=== PATIENT | male | born 1950 | race Caucasian/White ===

== ENCOUNTER 2018-04-09 15:54 | Inpatient (IN) | payer OTHER ==
[~2018-04-09] VITALS: Ht 162.6 cm; Wt 75.0 kg
[2018-04-09] MEDS ORDERED: ASPIRIN 325 MG TAB PO STA (19:22)
[2018-04-09] MEDS ORDERED: NITROGLYCERIN (SL) 0.4 MG TAB SL PRN ×2 (19:30→21:30)
[2018-04-09] MEDS ORDERED: ALBUTEROL 0.5% (NEB) 2.5 MG/0.5 ML AMP NEB STA (20:28)
[2018-04-09] MEDS ORDERED: IPRATROPIUM (NEB) 0.5 MG/2.5 ML AMP NEB STA (20:28)
[2018-04-09] MEDS ORDERED: FUROSEMIDE 40 MG INJ IV ONE (20:30)
--- NOTE | 2018-04-09 20:35 | ERD ---
ER Documentation Chief Complaint Chief Complaint Chest pain/sob x last night HPI This is a 67-year-old male with a past medical history of [id number] diabetes mellitus and hypertension. The patient presents to the emergency department complaining of chest pain and shortness of breath. He states that it began at 9 PM yesterday, roughly 23 hours prior to arrival. The patient states that the shortness of breath is worse with exertion. He is normally able to walk several blocks but states he can no longer walk a few steps without becoming short of breath. He denies any swelling of his lower extremities. He states the pressure-like sensation is 8 out of 10 in intensity. He denies any recent travel or prolonged immobilization. He has had associated symptoms of nausea but no diaphoresis. He stated he is felt and decreased gaseous sensation with mild abdominal distention but denies any abdominal pain. ROS All systems reviewed and are negative except as per history of present illness. PMhx/Soc History of Surgery: Yes (LEFT EYE CATARACTS) Anesthesia Reaction: No Hx Respiratory Disorders: No Hx Cardiac Disorders: Yes (HTN, HLD) Hx Psychiatric Problems: No Hx Miscellaneous Medical Probl: Yes (DM) Hx Alcohol Use: No Hx Substance Use: No Hx Tobacco Use: No Smoking Status: Never smoker Physical Exam Vitals Vital Signs Date Temp Pulse Resp B/P (MAP) Pulse Ox O2 O2 Flow FiO2 Time Delivery Rate 04/09/18 66 24 151/72 99 Room Air 20:17 (98) 04/09/18 98.3 75 18 207/96 96 16:02 (133) Physical Exam Constitutional:Well-developed. Well-nourished. HEENT:Normocephalic. Atraumatic.Pupils were equal round reactive to light. Moist mucous membranes.No tonsillar exudates. Neck: No nuchal rigidity. No lymphadenopathy. No posterior cervical spine tenderness or step-offs. Respiratory: Not using accessory muscles of respiration.Lungs were clear to auscultation bilaterally. Bilateral rhonchi. No rales. No wheezing. Cardiovascular: Regular rate regular rhythm.No murmurs. No rubs were apprecia beny.S1, S2 normal. Distal pulses are palpable 2+ bilaterally. GI: Abdomen was soft. Nontender. Non Distended. No pulsatile abdominal masses or bruits. No rebound. No guarding. Bowel sounds were present and normal. Muscle skeletal: Full range of motion of both the upper and lower extremities bilaterally.Normal muscle tone.No assymetrical calf tenderness or swelling. Skin: No petechia, no purpura. No lesions on the palms or the soles of the feet. No maculopapular rash. NEURO: Patient was alert, awake, orientated x3.No facial droop. Gait observed and normal with no ataxia.Speech had regular rate and rhythm. No focal neurological deficits. Result Diagram: 04/09/18192904/09/181929 Results 24 hrs Laboratory Tests Test 04/09/18 19:30 White Blood Count 10.6 10^3/ul Red Blood Count 4.12 10^6/ul Hemoglobin 11.9 g/dl Hematocrit 36.1 % Mean Corpuscular Volume 87.6 fl Mean Corpuscular Hemoglobin 28.9 pg Mean Corpuscular Hemoglobin Concent 33.0 g/dl Red Cell Distribution Width 12.9 % Platelet Count 342 10^3/UL Mean Platelet Volume 9.5 fl Immature Granulocytes % 0.500 % Neutrophils % 69.3 % Lymphocytes % 20.3 % Monocytes % 7.5 % Eosinophils % 1.6 % Basophils % 0.8 % Nucleated Red Blood Cells % 0.0 /100WBC Immature Granulocytes # 0.050 10^3/ul Neutrophils # 7.4 10^3/ul Lymphocytes # 2.2 10^3/ul Monocytes # 0.8 10^3/ul Eosinophils # 0.2 10^3/ul Basophils # 0.1 10^3/ul Nucleated Red Blood Cells # 0.0 10^3/ul Prothrombin Time 14.3 Sec Prothrombin Time Ratio 1.1 INR International Normalized Ratio 1.10 Activated Partial Thromboplast Time 30.7 Sec Sodium Level 138 mmol/L Potassium Level 4.9 mmol/L Chloride Level 100 mmol/L Carbon Dioxide Level 30 mmol/L Anion Gap 8 Blood Urea Nitrogen 26 mg/dl Creatinine 1.26 mg/dl Est Glomerular Filtrat Rate mL/min 57 mL/min Glucose Level 139 mg/dl Calcium Level 9.1 mg/dl Total Bilirubin 0.2 mg/dl Direct Bilirubin 0.00 mg/dl Indirect Bilirubin 0.2 mg/dl Aspartate Amino Transf (AST/SGOT) 33 IU/L Alanine Aminotransferase (ALT/SGPT) 45 IU/L Alkaline Phosphatase 99 IU/L Creatine Kinase 163 IU/L Creatine Kinase Index 0.9 Creatinine Kinase MB (Mass) 1.48 ng/ml Troponin I 0.897 ng/ml B-Type Natriuretic Peptide 07295 PG/ML Total Protein 6.9 g/dl Albumin 3.8 g/dl Globulin 3.10 g/dl Albumin/Globulin Ratio 1.22 Current Medications Medications Dose Sig/Bakari Start Time Status Last (Trade) Ordered Route PRN Stop Time Admin Dose Reason Admin Aspirin 325 mg ONCE STAT 04/09/18 DC 04/09/18 (Aspirin) PO 19:22 04/09/18 19:38 19:23 1 tab Q5M UP TO 3 04/09/18 04/09/18 Nitroglycerin DOSES PRN 19:30 19:38 SL .CHEST (Nitroglyceri PAIN n (Sl Tab) 0.4 Mg) Procedures/MDM The patient presented to the emergency department with chest pain. My clinical evaluation and workup was to distinguish minor causes of chest pain from acute life threatening conditions such as myocardial infarction, pulmonary embolism, aortic dissection, esophageal rupture, cardiac tamponade. The patient was placed on a secured entrance monitor and continuous pulse oximetry. IV access established by nursing staff. The patient had a chest radiograph reviewed by myself the radiologist which showed cardiomegaly but there is no pulmonary vascular congestion. The patient's BNP was significantly elevated and he has no risk factors for pulmonary embolism. I felt the patient's shortness of breath was a result of new onset congestive heart failure. The patient's troponin was also elevated. He will be treated for non-STEMI. He received aspirin and nitroglycerin with improvement of his chest pain. He stated it was now 2 out of 10 in intensity. He was given IV Lasix as well as a nebulizer treatment to improve his shortness of breath. 12 Lead EKG tracing ordered and reviewed by myself showed: Normal sinus rhythm of 75 bpm and no arrhythmia. MO interval normal. QRS duration normal. No ST segment elevation. T wave inversion in the lateral leads V4, V5 and V6 No ST segment depression. No changes consistent with acute ischemia. The patient will be admitted in serious condition to the telemetry serious under the care of the hospitalist. Critical Care: Time: 35 minutes Treatments/Evaluations: Close monitoring and treatment of unstable vital signs, cardiorespiratory, and neurologic status, while maintaining tight balance of fluid, respiratory, and cardiac interventions. Time does not include performing any of the above billable procedures. Departure Diagnosis: Primary Impression: Non-STEMI (non-ST elevated myocardial infarction) Additional Impression: CHF (congestive heart failure) Heart failure type: unspecified Heart failure chronicity: acute Qualified Codes: I50.9 - Heart failure, unspecified Condition: Serious LOI DAVALOS MD Apr 09, 2018 20:35
[2018-04-09] MEDS ORDERED: ACETAMINOPHEN 325 MG TAB PO PRN ×2 (21:00→21:30)
[2018-04-09] MEDS ORDERED: ONDANSETRON 4 MG INJ IV PRN (21:00)
[2018-04-09] MEDS ORDERED: NACL 0.9% 3 ML SYG IV SCH (21:30)
[2018-04-09] MEDS ORDERED: ONDANSETRON 4 MG TAB PO PRN (21:30)
[2018-04-09] MEDS ORDERED: BISACODYL (EC) 5 MG TAB PO PRN (21:30)
[2018-04-09] MEDS ORDERED: DOCUSATE SODIUM 100 MG CAP PO PRN (21:30)
[2018-04-09 22:00] VITALS: BP 143/78; PULSE 18; RESP 18
[2018-04-09 22:02] VITALS: PULSE 67
--- NOTE | 2018-04-09 22:05 | NUR ---
RECEIVED PT FROM ER. PT IS A/OX4. ABLE TO AMBULATE WITH NO ASSIST. DENIES ANY CP. WILL CONTINUE TO MONITOR
[2018-04-09] MEDS ORDERED: ATOR40TA68 PO (22:44)
[2018-04-09] MEDS ORDERED: LOSA25TA12 PO (22:44)
[2018-04-09] MEDS ORDERED: HYDR12.58 PO (22:44)
[2018-04-09] MEDS ORDERED: METF500T24 PO (22:44)
[2018-04-09 22:46] VITALS: Ht 162.6 cm; Wt 75.0 kg
[2018-04-10] VITALS (9 sets, daily range): BP systolic 133–171; BP diastolic 60–77; PULSE 54–77; RESP 16–18
--- NOTE | 2018-04-10 06:22 | NUR ---
SECOND TROPONIN READING IS EXACTLY THE SAME THE FIRST DRAW. MADE DR GRESHAM AWARE. NO NEW ORDERS MADE. PT DENIES ANY CP THROUGHOUT THE SHIFT. WILL ENDORSE TO AM SHIFT FOR CONTINUITY OF CARE
--- NOTE | 2018-04-10 08:05 | HP ---
Date/Time of Note Date/Time of Note DATE: 04/10/18 TIME: 08:04 Assessment/Plan VTE Prophylaxis SCD applied (from Nsg): Yes Pharmacological prophylaxis: NA/contraindicated Pharm contraindication: low risk/ambulating Lines/Catheters IV Catheter Type (from Nrsg): Saline Lock Assessment/Plan Hospital Course This is a 59-year-old male being admitted to the telemetry floor for: #1 new onset CHF exacerbation: Systolic versus diastolic, will obtain an echocardiogram. BNP is elevated at 11,000. Patient does have signs of mild volume overload. However he does not appear to be in any acute distress. He did receive a dose of Lasix 40 IV in the ED. At the current time we will put him on Lasix 20 mg twice daily daily. Fluid restriction. Hold ARB at the current time given patient's AK I. And will hold off on beta-jose enrique at the current time given his bradycardia. Will consult cardiology. Dr. García #2 elevated troponin: Type I versus type II. Patient denies any chest pain at the current time. EKG appears nonischemic. Will trend cardiac enzymes x3. Will obtain an echocardiogram. Consult cardiology. #3 diabetes mellitus: We will check a hemoglobin A1c, hold home oral medic ations, consider insulin sliding scale #4 hypertension: We will hold ARB at the current time given patient's TIM. Will also hold hydrochlorothiazide, reinitiate when clinically indicated #5 TIM: Unknown baseline creatinine. On presentation creatinine was 1.26. We will continue to trend. Will hold ARB and thiazide at the current time. Monitor renal function. Consider nephrology consultation, renal panel #6 borderline obesity: We will check hemoglobin A 1C, lipid panel, TSH #7 hyperlipidemia: Check lipid panel, resume statin #8 DVT GI prophylaxis: SCDs, no GI prophylaxis indicated Further treatment strategy will be implemented as per the clinical course. Result Diagram: 04/10/1843 04/10/1843 Results 24hrs Laboratory Tests Test 04/09/18 19:30 04/10/18 00:29 04/10/18 05:43 White Blood Count 10.6 8.9 Red Blood Count 4.12 L 3.78 L Hemoglobin 11.9 L 10.9 L Hematocrit 36.1 L 32.8 L Mean Corpuscular Volume 87.6 86.8 Mean Corpuscular Hemoglobin 28.9 L 28.8 L Mean Corpuscular Hemoglobin Concent 33.0 33.2 Red Cell Distribution Width 12.9 13.1 Platelet Count 342 337 Mean Platelet Volume 9.5 10.0 Immature Granulocytes % 0.500 H 0.300 Neutrophils % 69.3 62.1 Lymphocytes % 20.3 24.6 Monocytes % 7.5 8.2 Eosinophils % 1.6 3.9 Basophils % 0.8 0.9 Nucleated Red Blood Cells % 0.0 0.0 Immature Granulocytes # 0.050 H 0.030 Neutrophils # 7.4 5.5 Lymphocytes # 2.2 2.2 Monocytes # 0.8 0.7 Eosinophils # 0.2 0.4 Basophils # 0.1 0.1 Nucleated Red Blood Cells # 0.0 0.0 Prothrombin Time 14.3 Prothrombin Time Ratio 1.1 INR International Normalized Ratio 1.10 Activated Partial Thromboplast Time 30.7 Sodium Level 138 139 Potassium Level 4.9 4.1 Chloride Level 100 104 Carbon Dioxide Level 30 34 H Anion Gap 8 1 L Blood Urea Nitrogen 26 H 23 H Creatinine 1.26 H 1.29 H Est Glomerular Filtrat Rate mL/min 57 L 55 L Glucose Level 139 131 Calcium Level 9.1 8.7 Total Bilirubin 0.2 0.3 Direct Bilirubin 0.00 0.00 Indirect Bilirubin 0.2 0.3 Aspartate Amino Transf (AST/SGOT) 33 24 Alanine Aminotransferase (ALT/SGPT) 45 40 Alkaline Phosphatase 99 71 Creatine Kinase 163 131 98 Creatine Kinase Index 0.9 0.8 1.1 Creatinine Kinase MB (Mass) 1.48 1.10 1.04 Troponin I 0.897 *H 0.897 *H 0.850 *H B-Type Natriuretic Peptide 78697 H Total Protein 6.9 6.1 Albumin 3.8 3.2 L Globulin 3.10 2.90 Albumin/Globulin Ratio 1.22 1.10 Magnesium Level 1.9 Triglycerides Level 88 Cholesterol Level 89 L LDL Cholesterol, Calculated 46 HDL Cholesterol 25 L Cholesterol/HDL Ratio 3.5 HPI/ROS Admit Date/Time Admit Date/Time Apr 09, 2018 at 20:39 Hx of Present Illness Chief complaint: Chest pain This is a 67-year-old male with a past medical history of mwh-[id number] diabetes mellitus and hypertension. The patient presents to the emergency department complaining of chest pain and shortness of breath. Son was present with him at the bedside. He reported that he started experiencing chest pain and shortness of breath on Wednesday night. The patient states that the shortness of breath is worse with exertion. He is normally able to walk several blocks but states he can no longer walk a few steps without becoming short of breath. He denies any swelling of his lower extremities. He states the pressure-like sensation is 8 out of 10 in intensity. He denies any recent travel or prolonged immobilization. He has had associated symptoms of nausea but no diaphoresis. He stated he is felt and decreased gaseous sensation with mild abdominal distention but denies any abdominal pain. He at the current time denies any chest pain. Allergies: NKDA Medications: See Apr Const: As per HPI Eyes : No pain discharge or redness or change in visual acuity ENT: No pain, sore throat, congestion, congestion, dysphagia or discharge Respiratory: As per HPI Cardiovascular: As per HPI GI : no change in appetite, abdominal pain, nausea, vomiting, diarrhea, constipation, or change in the color his stool Genitourinary: No dysuria, hematuria, flank pain , discharge or CVA tenderness Musculoskeletal: No joint pain, back pain, neck pain, restricted range of motion in neck or joints Skin: No rash, bruising or hives Neuro: No headache, dizziness, syncope, seizure, focal weakness Endocrine: No polyuria, polydipsia, temperature intolerance Psych: No hallucination, depression, anxiety or suicidal ideation PMH/Family/Social Past Medical History Diabetes mellitus, hypertension, hyperlipidemia Medications Current Medications IV Flush (NS 3 ml) 3 ml PER PROTOCOL IV ; Start 04/09/18 at 21:30 Ondansetron HCl (Zofran Tab) 4 mg Q6H PRN PO NAUSEA/VOMITING; Start 04/09/18 at 21:30 Nitroglycerin (Nitroglycerin (Sl Tab) 0.4 Mg) 1 tab Q5M PRN SL .CHEST PAIN; Start 04/09/18 at 21:30 Acetaminophen (Tylenol Tab) 650 mg Q6H PRN PO .PAIN 1-3 OR TEMP; Start 04/09/18 at 21:30 Docusate Sodium (Colace) 100 mg Q12H PRN PO .CONSTIPATION; Start 04/09/18 at 21:30 Bisacodyl (Dulcolax) 5 mg DAILY PRN PO .CONSTIPATION; Start 04/09/18 at 21:30 Influenza Virus Vaccine Quadrival (Fluzone) 0.5 ml ONCE ONCE IM* ; Start 04/11/18 at 10:00; Stop 04/11/18 at 10:01 Coded Allergies: No Known Allergy (Unverified , 04/09/18) Past Surgical History Past Surgical Hx: no surgical history Family History Significant Family History: no pertinent family hx Social History Alcohol Use: none Smoking Status: Never smoker Drug Use: none Exam/Review of Systems Vital Signs Vitals Vital Signs Date Temp Pulse Resp B/P (MAP) Pulse Ox O2 O2 Flow FiO2 Time Delivery Rate 04/10/18 98.2 58 18 148/67 96 07:39 (94) 04/09/18 Room Air 22:00 04/09/18 21 20:59 Intake and Output 04/09/18 04/09/18 04/10/18 1515:00 23:00 07:00 IntakeIntake Total 400 ml BalanceBalance 400 ml Exam Exam General: Patient is a pleasant male currently lying in bed in no acute distress. HEENT: Atraumatic, normocephalic. The pupils are equal, round and reactive. Extraocular motor are intact Neck: Supple with full range of motion. No rigidity or meningismus Chest: Nontender Lungs: Bilateral crackles/rales at the lung bases, nonlabored breathing Heart: Normal S1-S2, Regular rhythm and rate, elevated JVD Abdomen: Soft , mild distention noted, normal bowel sounds Extremities: Normal to inspection, no edema no cyanosis Neurologic: Normal mental status, speech normal, cranial nerves II through XII are intact, motor and sensory are intact, no focal weakness Additional Comments PROCEDURE: XR Chest. CLINICAL INDICATION: Chest pain TECHNIQUE: Single frontal view of the chest was obtained COMPARISON: None FINDINGS: The heart is enlarged. The thoracic aorta is calcified. There are mild bibasilar atelectatic changes. The lungs are otherwise clear. There is no pleural effusion or pneumothorax. RPTAT: AA IMPRESSION: Mild cardiomegaly. Calcified aorta consistent with atherosclerotic disease. Mild bibasilar atelectatic changes. .Jos Wilde MD, Date Time Electronically viewed and signed by .Jos Wilde MD, on 04/09/2018 19:50 .S/ CC: LOI DAVALOS MD [phone] EKG: Normal sinus rhythm of 75 bpm and no arrhythmia. WV interval normal. QRS duration normal. No ST segment elevation. T wave inversion in the lateral leads V4, V5 and V6 No ST segment depression. No changes consistent with acute ischemia. OSBALDO GRESHAM Apr 10, 2018 08:04
[2018-04-10] MEDS: FUROSEMIDE 20 MG INJ IV SCH ×2 (09:39→17:28)
--- NOTE | 2018-04-10 12:45 | PN ---
Date/Time of Note Date/Time of Note DATE: 04/10/18 TIME: 12:41 Assessment/Plan VTE Prophylaxis Risk score (from Ns)>0 risk: 2 SCD applied (from Ns): Yes Pharmacological prophylaxis: heparin Lines/Catheters IV [facility] Saline Lock Assessment/Plan Hospital Course 68 yo male with DMII, hypertension with SOB and volume overload, suggestive of new onset heart failure - Continue diuresis to euvolemia - TTE pending - I have added Coreg for BP management - Troponin elevated, but I suspect type II as no chest symptosm or ST changes to suggest acute infarction - CKD II likely given stable creatinine and DMII. Monitor creatinine with diuretics. VALERIA inhibitor if stable Result Diagram: 04/10/18 0543 04/10/18 1013 Results 24hrs Laboratory Tests Test 04/09/18 19:30 04/10/18 00:29 04/10/18 05:43 04/10/18 05:56 White Blood Count 10.6 8.9 Red Blood Count 4.12 L 3.78 L Hemoglobin 11.9 L 10.9 L Hematocrit 36.1 L 32.8 L Mean Corpuscular 87.6 86.8 Volume Mean Corpuscular 28.9 L 28.8 L Hemoglobin Mean Corpuscular 33.0 33.2 Hemoglobin Concent Red Cell 12.9 13.1 Distribution Width Platelet Count 342 337 Mean Platelet Volume 9.5 10.0 Immature 0.500 H 0.300 Granulocytes % Neutrophils % 69.3 62.1 Lymphocytes % 20.3 24.6 Monocytes % 7.5 8.2 Eosinophils % 1.6 3.9 Basophils % 0.8 0.9 Nucleated Red Blood 0.0 0.0 Cells % Immature 0.050 H 0.030 Granulocytes # Neutrophils # 7.4 5.5 Lymphocytes # 2.2 2.2 Monocytes # 0.8 0.7 Eosinophils # 0.2 0.4 Basophils # 0.1 0.1 Nucleated Red Blood 0.0 0.0 Cells # Prothrombin Time 14.3 Prothrombin Time 1.1 Ratio INR International 1.10 Normalized Ratio Activated 30.7 Partial Thromboplast Time Sodium Level 138 139 Potassium Level 4.9 4.1 Chloride Level 100 104 Carbon Dioxide Level 30 34 H Anion Gap 8 1 L Blood Urea Nitrogen 26 H 23 H Creatinine 1.26 H 1.29 H Est Glomerular 57 L 55 L Filtrat Rate mL/min Glucose Level 139 131 Calcium Level 9.1 8.7 Total Bilirubin 0.2 0.3 Direct Bilirubin 0.00 0.00 Indirect Bilirubin 0.2 0.3 Aspartate Amino 33 24 Transf (AST/SGOT) Alanine 45 40 Aminotransferase (AL T/SGPT) Alkaline Phosphatase 99 71 Creatine Kinase 163 131 98 Creatine Kinase 0.9 0.8 1.1 Index Creatinine Kinase MB 1.48 1.10 1.04 (Mass) Troponin I 0.897 *H 0.897 *H 0.850 *H B-Type Natriuretic 48306 H Peptide Total Protein 6.9 6.1 Albumin 3.8 3.2 L Globulin 3.10 2.90 Albumin/Globulin 1.22 1.10 Ratio Magnesium Level 1.9 Triglycerides Level 88 Cholesterol Level 89 L LDL Cholesterol, 46 Calculated HDL Cholesterol 25 L Cholesterol/HDL 3.5 Ratio Hemoglobin A1c 7.4 H Test 04/10/18 10:13 Sodium Level 139 Potassium Level 4.1 Chloride Level 101 Carbon Dioxide Level 31 Anion Gap 7 Blood Urea Nitrogen 23 H Creatinine 1.30 H Glucose Level 231 #H Calcium Level 9.0 Phosphorus Level 4.3 Creatine Kinase 90 Creatine Kinase 0.9 Index Creatinine Kinase MB 0.84 (Mass) Troponin I 0.707 *H Albumin 3.4 Subjective 24 Hr Interval Summary Free Text/Dictation Patient comfortable Receiving diuretics Complains of SOB and abodminal distension Exam/Review of Systems Exam Vitals Vital Signs Date Temp Pulse Resp B/P (MAP) Pulse Ox O2 O2 Flow FiO2 Time Delivery Rate 04/10/18 55 12:35 04/10/18 98.7 18 171/77 97 12:10 (108) 04/09/18 Room Air 22:00 04/09/18 21 20:59 Intake and Output 04/09/18 04/09/18 04/10/18 1515:00 23:00 07:00 IntakeIntake Total 400 ml BalanceBalance 400 ml Exam + JVD Breathing comfortably RRR + abdominal distension no peripheral edema Results Results 24hrs Laboratory Tests Test 04/09/18 19:30 04/10/18 00:29 04/10/18 05:43 04/10/18 05:56 White Blood Count 10.6 8.9 Red Blood Count 4.12 L 3.78 L Hemoglobin 11.9 L 10.9 L Hematocrit 36.1 L 32.8 L Mean Corpuscular 87.6 86.8 Volume Mean Corpuscular 28.9 L 28.8 L Hemoglobin Mean Corpuscular 33.0 33.2 Hemoglobin Concent Red Cell 12.9 13.1 Distribution Width Platelet Count 342 337 Mean Platelet Volume 9.5 10.0 Immature 0.500 H 0.300 Granulocytes % Neutrophils % 69.3 62.1 Lymphocytes % 20.3 24.6 Monocytes % 7.5 8.2 Eosinophils % 1.6 3.9 Basophils % 0.8 0.9 Nucleated Red Blood 0.0 0.0 Cells % Immature 0.050 H 0.030 Granulocytes # Neutrophils # 7.4 5.5 Lymphocytes # 2.2 2.2 Monocytes # 0.8 0.7 Eosinophils # 0.2 0.4 Basophils # 0.1 0.1 Nucleated Red Blood 0.0 0.0 Cells # Prothrombin Time 14.3 Prothrombin Time 1.1 Ratio INR International 1.10 Normalized Ratio Activated 30.7 Partial Thromboplast Time Sodium Level 138 139 Potassium Level 4.9 4.1 Chloride Level 100 104 Carbon Dioxide Level 30 34 H Anion Gap 8 1 L Blood Urea Nitrogen 26 H 23 H Creatinine 1.26 H 1.29 H Est Glomerular 57 L 55 L Filtrat Rate mL/min Glucose Level 139 131 Calcium Level 9.1 8.7 Total Bilirubin 0.2 0.3 Direct Bilirubin 0.00 0.00 Indirect Bilirubin 0.2 0.3 Aspartate Amino 33 24 Transf (AST/SGOT) Alanine 45 40 Aminotransferase (AL T/SGPT) Alkaline Phosphatase 99 71 Creatine Kinase 163 131 98 Creatine Kinase 0.9 0.8 1.1 Index Creatinine Kinase MB 1.48 1.10 1.04 (Mass) Troponin I 0.897 *H 0.897 *H 0.850 *H B-Type Natriuretic 52578 H Peptide Total Protein 6.9 6.1 Albumin 3.8 3.2 L Globulin 3.10 2.90 Albumin/Globulin 1.22 1.10 Ratio Magnesium Level 1.9 Triglycerides Level 88 Cholesterol Level 89 L LDL Cholesterol, 46 Calculated HDL Cholesterol 25 L Cholesterol/HDL 3.5 Ratio Hemoglobin A1c 7.4 H Test 04/10/18 10:13 Sodium Level 139 Potassium Level 4.1 Chloride Level 101 Carbon Dioxide Level 31 Anion Gap 7 Blood Urea Nitrogen 23 H Creatinine 1.30 H Glucose Level 231 #H Calcium Level 9.0 Phosphorus Level 4.3 Creatine Kinase 90 Creatine Kinase 0.9 Index Creatinine Kinase MB 0.84 (Mass) Troponin I 0.707 *H Albumin 3.4 Medications Medication Current Medications IV Flush (NS 3 ml) 3 ml PER PROTOCOL IV ; Start 04/09/18 at 21:30 Ondansetron HCl (Zofran Tab) 4 mg Q6H PRN PO NAUSEA/VOMITING; Start 04/09/18 at 21:30 Nitroglycerin (Nitroglycerin (Sl Tab) 0.4 Mg) 1 tab Q5M PRN SL .CHEST PAIN; Start 04/09/18 at 21:30 Acetaminophen (Tylenol Tab) 650 mg Q6H PRN PO .PAIN 1-3 OR TEMP; Start 04/09/18 at 21:30 Docusate Sodium (Colace) 100 mg Q12H PRN PO .CONSTIPATION; Start 04/09/18 at 21:30 Bisacodyl (Dulcolax) 5 mg DAILY PRN PO .CONSTIPATION; Start 04/09/18 at 21:30 Influenza Virus Vaccine Quadrival (Fluzone) 0.5 ml ONCE ONCE IM* ; Start 04/11/18 at 10:00; Stop 04/11/18 at 10:01 Furosemide (Lasix) 20 mg BID DIURETICS IV Last administered on 04/10/18at 09:39; Admin Dose 20 MG; Start 04/10/18 at 09:30; Stop 04/12/18 at 09:29 Carvedilol (Coreg) 3.125 mg BID PO ; Start 04/10/18 at 21:00; Status UNAMRIT JACOBS MD Apr 10, 2018 12:45
[2018-04-10] MEDS ORDERED: GLUCOSE GEL 15 GRAM TUBE BUCCAL PRN (13:00)
[2018-04-10] MEDS ORDERED: GLUCAGON 1 MG INJ IM PRN (13:00)
[2018-04-10] MEDS ORDERED: DEXTROSE 50% 50 ML SYRINGE IV PRN ×2 (13:00)
[2018-04-10] MEDS ORDERED: GLUCOSE GEL 15 GRAM TUBE PO PRN ×2 (13:00)
[2018-04-10] MEDS ORDERED: hydrALAzine 20 MG INJ IV PRN (14:00)
--- NOTE | 2018-04-10 14:04 | RADRPT ---
Echocardiogram Report Patient Name: ASTON CERNAPatient ID: [id number] : 1950 (67y 11m)Study Date: 04/10/2018 8:34:31 AM Gender: Pilocession #: [id number] Tech: Diane Whipple [facility] Location: 519- Ref.Physician: ADEBAYO GRESHAM Height(Cm): BSA: Weight(Kg): Quality: AdequateOrder Physician: Adebayo Gresham Account #: Procedures: Echocardiographic Report: Transthoracic echocardiogram with complete 2D, M-Mode, and doppler examination. Indications: Congestive Heart Failure , Elevate Troponin. Measurements: 2D/M Mode Doppler Measurement Value Normal Range Measurement Value Normal Range LVIDd 2D 4.5 [ 4.2 - 5.8 ] cm AV Peak Ramon 1.4 [ 100.0 - 170.0 ] cm/sec LVIDs 2D 3.7 [ 2.5 - 4.0 ] cm AV Peak PG 8.0 [ 2.0 - 9.0 ] mmHg LVPWd 2D 1.0 [ 0.6 - 1.0 ] cm LVOT Peak Ramon 0.8 [ 70.0 - 110.0 ] cm/sec IVSd 2D 0.9 [ 0.6 - 1.0 ] cm LVOT Peak PG 2.0 [ 2.0 - 6.0 ] mmHg AoR Diam 2D 2.7 [ 2.6 - 3.4 ] cm MV E Peak Ramon 1.0 [ 60.0 - 130.0 ] cm/sec EDV 2D 92.4 [ 62.0 - 150.0 ] ml MV A Peak Ramon 0.4 [ 100.0 - 120.0 ] cm/sec ESV 2D 59.6 [ 21.0 - 61.0 ] ml MV E/A 2.7 [ 0.8 - 1.5 ] ratio EF 2D 35.5 [ 52.0 - 72.0 ] percent MV Decel Time 225 [ 104 - 258 ] msec LA Dimen 2D 3.4 [ 3.0 - 4.0 ] cm Med E` Ramon 0.1 cm/sec MV E/A 2.7 [ 0.8 - 1.5 ] ratio TR Peak Ramon 3.1 [ 100.0 - 280.0 ] cm/sec TR Peak PG 39.0 mmHg RVSP 39.0 [ 10.0 - 36.0 ] mmHg RA Pressure 3.0 mmHg Findings: Left Ventricle: Normal left ventricular cavity size. Normal left ventricular wall thickness. Moderate global left ventricular systolic dysfunction. Ejection fraction is visually estimated at 35-40 %. Tissue Doppler/Mitral Doppler indices are within normal limits. Right Ventricle: Normal right ventricular size. Normal right ventricular systolic function. Left Atrium: The left atrium is normal in size. Right Atrium: The right atrium is normal in size. Mitral Valve: Normal appearance of the mitral valve. Mild mitral valve regurgitation. Aortic Valve: Normal appearance of the aortic valve. No aortic regurgitation. Tricuspid Valve: Normal appearance of the tricuspid valve. There is trace tricuspid regurgitation. Pulmonic Valve: Normal pulmonic valve appearance. No evidence of pulmonic regurgitation. Pericardium: Normal pericardium with no significant pericardial effusion. Aorta: Normal aortic root. IVC: Normal size and normal respiratory collapse consistent with normal right atrial pressure. Conclusions: Normal left ventricular cavity size. Normal left ventricular wall thickness. Moderate global left ventricular systolic dysfunction. Ejection fraction is visually estimated at 35-40 %. Tissue Doppler/Mitral Doppler indices are within normal limits. Normal appearance of the mitral valve. Mild mitral valve regurgitation. Normal appearance of the tricuspid valve. There is trace tricuspid regurgitation. Electronically Signed By: Tod García 2018-04-10 14:03:41 PST
[2018-04-10] MEDS: ASPIRIN 81 MG TAB PO SCH (14:20)
--- NOTE | 2018-04-10 14:28 | CONS ---
DATE OF ADMISSION: 04/09/2018 DATE OF CONSULTATION: 04/10/2018 TYPE OF CONSULTATION: Cardiology. REASON FOR CONSULTATION: Non-ST myocardial infarction, elevated BNP, assess for congestive heart lee hammer. REQUESTING PHYSICIAN: Adebayo Gresham MD, from the hospitalist service. HISTORY OF PRESENT ILLNESS: Mr. Guido Wall is a 67-year-old male with a history of diabetes melli tus, hypertension, dyslipidemia, prior cardiac pathology evaluated by tech writer 3 to 4 months prio r, but did not follow instructions who now presents with acute onset shortness of breath and substern al chest pain described as a pressure-like sensation in the evening prior to admit to the hospital. Pain occurred while at rest. The patient presented here to the emergency department in [facility] where upon arrival temperature was 98.3, blood pressure was markedly with 207/96, pul se 75, respiratory rate 18, satting 92%. The patient's labs were notable for sodium 138, potassium 4 .9, creatinine 1.26, BUN 26, troponin of 0.897, BNP of 11,000, INR of 1.1. The patient underwent a c hest x-ray revealing mild cardiomegaly, mild bibasilar atelectatic changes. The patient's electrocar diogram revealed normal sinus rhythm, rate of 75 with inferior and lateral T-wave inversions. The naeem dowling was subsequently admitted to the floor and since admit to the floor, has had no change in tropo nins status minimally positive. PAST MEDICAL HISTORY: As above in HPI. MEDICATIONS CURRENTLY IN HOSPITAL: 1. Carvedilol 3.125 mg p.o. b.i.d. 2. Lantus. 3. Lasix 20 mg IV b.i.d. 4. Sublingual nitroglycerin. 5. Dulcolax. 6. Colace. ALLERGIES: NO KNOWN DRUG ALLERGIES. SOCIAL HISTORY: No current tobacco, EtOH or illicit drug use. FAMILY HISTORY: No history of sudden cardiac or early CAD. REVIEW OF SYSTEMS: As above in HPI. CONSTITUTIONAL: No fevers, chills. PULMONARY: No current signs of respiratory compromise. GASTROINTESTINAL: No vomiting. GENITOURINARY: Renal failure. PSYCHIATRIC: No documented psych history. NEUROLOGIC: No documented history of CVA. ENDOCRINE: Diabetes mellitus. PHYSICAL EXAMINATION: VITAL SIGNS: Temperature 98.7, most recently pulse 55, blood pressure 171/77, respiration 18, sattin g 93%. GENERAL: The patient is alert, awake, in no acute distress. NECK: JVP is approximately 9 cm of water. CHEST: Fair air movement throughout. HEART: Bradycardic, regular rhythm, normal S1, S2, I/ systolic murmur, nondisplaced PMI. ABDOMEN: Positive bowel sounds, soft. EXTREMITIES: No significant pitting edema, 1+ pulses bilateral posterior tibial. LABORATORY DATA: Most recently today white blood cell count of 8.9, hemoglobin 10.9, platelet count of 337. Sodium of 139, potassium 4.1, creatinine 1.3, BUN 23. Troponin 0.707, mildly down. LDL 46, HDL 25. IMAGING STUDIES: As above in HPI. No further imaging studies for my review at this time. ELECTROCARDIOGRAM: As above in HPI. No further electrocardiograms for my review at this time. IMPRESSION: 1. Positive troponin, concerning for non-ST elevation myocardial infarction, no significant uptrend in the setting of renal failure. 2. Chest pain with positive troponins, likely consistent with [id number] myocardial infarction . 3. Shortness of breath, assess for congestive heart failure. 4. Increased BNP, assess for congestive heart failure. 5. Abnormal electrocardiogram with inferior and lateral T-wave inversions, assess for acute coronary syndrome. 6. Hypertension, uncontrolled. 7. Dyslipidemia. 8. Bradycardia with heart rates to the 50s. RECOMMENDATIONS: 1. At this time, we would maintain the patient on telemetry monitoring to follow rhythm and rate con trol closely. 2. Continue to trend the patient's cardiac enzymes, assess for any significant ongoing cardiac damag e. 3. Check a TSH to be ensure subclinical hypothyroidism is not contributing to any bouts of bradyarrh ythmias. 4. Continue the patient's Lasix diuresis, following strict I's and O's, creatinine to grade diuresis closely. 5. Continue the patient's current carvedilol as tolerated and we will additionally give the patient hydralazine at this time to improve overall systolic blood pressure and possibly afterload reduction. 6. We will follow up the patient's 2D echo to further assess ejection fraction, wall motion or rule out any major valve abnormalities. 7. We would place the patient on aspirin in the setting of positive troponins and we will initiate t he patient on Lovenox subcutaneously daily. 8. Further recommendations pertaining to the care of the patient will made as the patient progresses through his inpatient hospital clinical course and the patient likely is requiring left heart cathet erization versus a cardiac stress test in setting of ongoing renal failure. Thank you for allowing me to take part in the care of this patient. I will continue to follow him ve ry closely with you with further recommendations to be made as the patient [facility]. Dictated By: CHRISTI HAMILTON/NTS Conf#: [id number] DID#: [id number] CC: ADEBAYO GRESHAM MD; ALBA BORGES MD;*EndCC*
[2018-04-10] MEDS: ENOXAPARIN 80 MG/0.8 ML SYG SC SCH (15:07)
[2018-04-10] MEDS: INSULIN ASPART [NOVOLOG] 3 ML PEN SC SCH ×3 (17:25→21:00)
--- NOTE | 2018-04-10 17:53 | NUR ---
EOSS Patient is alert and oriented to person, place, and time. No shortness of breath noted. No complaint of pain. patient is ambulatory with steady gait. US kidney done during shift. All needs attended to and met. Troponins trending down. Kept comfortable. Call light within reach.
[2018-04-10] MEDS: ATORVASTATIN 20 MG TAB PO SCH (21:24)
[2018-04-10] MEDS: INSULIN GLARGINE [LANTus] (100 UNITS/ML) SYG SC SCH (21:28)
[2018-04-11] VITALS (9 sets, daily range): BP systolic 127–160; BP diastolic 61–72; PULSE 58–82; RESP 18–20
[2018-04-11] MEDS: FUROSEMIDE 20 MG INJ IV SCH ×2 (05:43→17:38)
--- NOTE | 2018-04-11 06:41 | NUR ---
NO SIGNIFICANT CHANGES. NO COMPLAINS OF CP THROUGHOUT THE SHIFT. ALL NEEDS ATTENDED. WILL ENDORSE TO AM SHIFT FOR CONTINUITY OF CARE
[2018-04-11] MEDS: INSULIN ASPART [NOVOLOG] 3 ML PEN SC SCH ×7 (07:55→20:28)
[2018-04-11] MEDS: ASPIRIN 81 MG TAB PO SCH (08:13)
--- NOTE | 2018-04-11 12:46 | CONS ---
Assessment/Plan Assessment/Plan Hospital Course (Demo Recall) IMPRESSION: 1. Positive troponin, concerning for non-ST elevation myocardial infarction, no significant uptrend in the setting of renal failure.-downtrending 2. Chest pain with positive troponins, likely consistent with slk-[id number] myocardial infarction. 3. Shortness of breath, assess for congestive heart failure. 4. Increased BNP, assess for congestive heart failure. 5. Abnormal electrocardiogram with inferior and lateral T-wave inversions, assess for acute coronary syndrome. 6. Hypertension, uncontrolled. 7. Dyslipidemia. 8. Bradycardia with heart rates to the 50s. 9. Cardiomyopathy with decreased LVEF by echo this admit REcc -Tele -serial ecg;'s -continue coreg/hydralazine -Continue lasix diuresis - lexiscan to assess significance opf posituve troponin in the setting of renal failure Consultation Date/Type/Reason Admit Date/Time Apr 09, 2018 at 20:39 Initial Consult Date 04/10/18 Type of Consult Cardiology Reason for Consultation CHF Requesting Provider: ANTHONY GARCÍA Date/Time of Note DATE: 04/11/18 TIME: 12:41 Exam/Review of Systems Vital Signs Vitals Vital Signs Date Temp Pulse Resp B/P (MAP) Pulse Ox O2 O2 Flow FiO2 Time Delivery Rate 04/11/18 98.4 61 20 127/61 96 11:33 (83) 04/11/18 Room Air 04:00 04/09/18 21 20:59 Intake and Output 04/10/18 04/10/18 04/11/18 1515:00 23:00 07:00 IntakeIntake Total 1200 ml 750 ml BalanceBalance 1200 ml 750 ml Exam Exam Review of Systems: CONSTITUTIONAL: No fevers, chills. PULMONARY: No sob CARDIOVASCULAR: No chest pain/palpitations GASTROINTESTINAL: No nausea/vomiting. GENITOURINARY: No hematuria/dysuria. MUSCULOSKELETAL: No myagias/arthalgias. PSYCHIATRIC: The patient denies depression. NEUROLOGIC: No weakness Constitutional: alert Psych: no complaints Head: normocephalic ENMT: mucosa pink and moist Neck: supple, jvd (9 cm water) Respiratory: diminished breath sounds Cardiovascular: regular rate and rhythm Gastrointestinal: soft, non-tender Musculoskeletal: muscle tone (normal) Extremities: edema (none) Labs Result Diagram: 04/11/18 0543 04/11/18 0543 Results 24hrs Laboratory Tests Test 04/10/18 15:54 04/10/18 16:24 04/10/18 17:25 04/10/18 21:22 Creatine Kinase 81 Creatine Kinase 1.0 Index Creatinine Kinase MB 0.83 (Mass) Troponin I 0.628 *H Urine Color YELLOW Urine Clarity CLEAR Urine pH 6.0 Urine Specific 1.015 [place] Urine Ketones NEGATIVE Urine Nitrite NEGATIVE Urine Bilirubin NEGATIVE Urine Urobilinogen 1+ H Urine Leukocyte NEGATIVE Esterase Urine Microscopic 1 RBC Urine Microscopic 0 WBC Urine Hemoglobin NEGATIVE Urine Glucose 1+ H Urine Total Protein 2+ H Bedside Glucose 112 170 Test 04/10/18 22:01 04/11/18 05:43 04/11/18 07:58 04/11/18 11:59 Creatine Kinase 69 Creatine Kinase 1.0 Index Creatinine Kinase MB 0.70 (Mass) Troponin I 0.601 *H White Blood Count 9.7 Red Blood Count 3.93 L Hemoglobin 11.5 L Hematocrit 34.5 L Mean Corpuscular 87.8 Volume Mean Corpuscular 29.3 Hemoglobin Mean Corpuscular 33.3 Hemoglobin Concent Red Cell 12.8 Distribution Width Platelet Count 351 Mean Platelet Volume 10.0 Immature 0.300 Granulocytes % Neutrophils % 62.2 Lymphocytes % 22.3 Monocytes % 8.7 Eosinophils % 5.7 Basophils % 0.8 Nucleated Red Blood 0.0 Cells % Immature 0.030 Granulocytes # Neutrophils # 6.0 Lymphocytes # 2.2 Monocytes # 0.8 Eosinophils # 0.6 H Basophils # 0.1 Nucleated Red Blood 0.0 Cells # Sodium Level 140 Potassium Level 4.8 Chloride Level 103 Carbon Dioxide Level 32 H Anion Gap 5 Blood Urea Nitrogen 30 H Creatinine 1.41 H Est Glomerular 50 L Filtrat Rate mL/min Glucose Level 125 Calcium Level 9.1 Magnesium Level 2.0 Total Bilirubin 0.1 L Direct Bilirubin 0.00 Indirect Bilirubin 0.1 Aspartate Amino 17 Transf (AST/SGOT) Alanine 32 Aminotransferase (AL T/SGPT) Alkaline Phosphatase 80 Total Protein 6.2 Albumin 3.3 Globulin 2.90 Albumin/Globulin 1.13 Ratio Bedside Glucose 122 118 Medications Medications Current Medications IV Flush (NS 3 ml) 3 ml PER PROTOCOL IV ; Start 04/09/18 at 21:30 Ondansetron HCl (Zofran Tab) 4 mg Q6H PRN PO NAUSEA/VOMITING; Start 04/09/18 at 21:30 Nitroglycerin (Nitroglycerin (Sl Tab) 0.4 Mg) 1 tab Q5M PRN SL .CHEST PAIN; Start 04/09/18 at 21:30 Acetaminophen (Tylenol Tab) 650 mg Q6H PRN PO .PAIN 1-3 OR TEMP; Start 04/09/18 at 21:30 Docusate Sodium (Colace) 100 mg Q12H PRN PO .CONSTIPATION Last administered on 04/11/18at 08:48; Admin Dose 100 MG; Start 04/09/18 at 21:30 Bisacodyl (Dulcolax) 5 mg DAILY PRN PO .CONSTIPATION; Start 04/09/18 at 21:30 Furosemide (Lasix) 20 mg BID DIURETICS IV Last administered on 04/11/18at 05:43; Admin Dose 20 MG; Start 04/10/18 at 09:30; Stop 04/12/18 at 09:29 Carvedilol (Coreg) 3.125 mg BID PO Last administered on 04/11/18at 08:13; Admin Dose 3.125 MG; Start 04/10/18 at 21:00 Insulin Glargine (Lantus) 11 units DAILY@2000 SC Last administered on 04/10/18at 21:28; Admin Dose 11 UNITS; Start 04/10/18 at 20:00 Insulin Aspart (Novolog Insulin Pen) 4 unit WITH MEALS SC Last administered on 04/11/18at 12:02; Admin Dose 4 UNIT; Start 04/10/18 at 17:55 Insulin Aspart (Novolog Insulin Pen) NOVOLOG *MILD* ALGORITHM WITH MEALS BEDTIME SC ; Start 04/10/18 at 17:55 Miscellaneous Information 1 ea NOTE XX ; Start 04/10/18 at 13:00 Glucose (Glutose) 15 gm Q15M PRN PO DECREASED GLUCOSE; Start 04/10/18 at 13:00 Glucose (Glutose) 22.5 gm Q15M PRN PO DECREASED GLUCOSE; Start 04/10/18 at 13:00 Dextrose (D50w Syringe) 25 ml Q15M PRN IV DECREASED GLUCOSE; Start 04/10/18 at 13:00 Dextrose (D50w Syringe) 50 ml Q15M PRN IV DECREASED GLUCOSE; Start 04/10/18 at 13:00 Glucagon (Glucagen) 1 mg Q15M PRN IM DECREASED GLUCOSE; Start 04/10/18 at 13:00 Glucose (Glutose) 15 gm Q15M PRN BUCCAL DECREASED GLUCOSE; Start 04/10/18 at 13:00 Hydralazine HCl (Apresoline) 50 mg Q8 PO Last administered on 04/11/18at 05:43; Admin Dose 50 MG; Start 04/10/18 at 14:00 Aspirin (Aspirin) 81 mg DAILY PO Last administered on 04/11/18at 08:13; Admin Dose 81 MG; Start 04/10/18 at 14:00 Enoxaparin Sodium (Lovenox) 75 mg Q24H SC Last administered on 04/10/18at 15:07; Admin Dose 75 MG; Start 04/10/18 at 14:00 Hydralazine HCl (Apresoline) 10 mg Q4H PRN IV SBP>170; Start 04/10/18 at 14:00 Atorvastatin Calcium (Lipitor) 20 mg HS PO Last administered on 04/10/18at 21:24; Admin Dose 20 MG; Start 04/10/18 at 21:00 CHRISTI HART Apr 11, 2018 12:46
[2018-04-11] MEDS: ENOXAPARIN 80 MG/0.8 ML SYG SC SCH (14:25)
--- NOTE | 2018-04-11 15:38 | PN ---
Date/Time of Note Date/Time of Note DATE: 04/11/18 TIME: 15:31 Assessment/Plan VTE Prophylaxis Risk score (from Nsg)>0 risk: 2 Pharmacological prophylaxis: LMWH Lines/Catheters IV Catheter Type (from Nrsg): Saline Lock Assessment/Plan Hospital Course 68 yo male with DMII, hypertension with SOB and volume overload, suggestive of new onset heart failure 1. Acute systolic CHF-newly diagnosed -Echo shows an EF of 35-40%, patient has no known history of CHF or MS -Cardiology consultation appreciated, follow-up with recommendations -Continue diuresis to euvolemia -Continue Coreg 2. Non-STEMI -Likely type II as patient has no complaints of chest pain -Continue therapeutic Lovenox, aspirin and statin -Stress test per cardiology 3. Diabetes -A1c is 7.4 -Continue scheduled insulin and sliding scale 4. Hypertension -Continue Coreg and hydralazine 5. CKD likely secondary to hypertension and diabetes -Nephrology consultation obtained Prophylaxis: Lovenox Result Diagram: 04/11/18 0543 04/11/1843 Results 24hrs Laboratory Tests Test 04/10/18 15:54 04/10/18 16:24 04/10/18 17:25 04/10/18 21:22 Creatine Kinase 81 Creatine Kinase 1.0 Index Creatinine Kinase MB 0.83 (Mass) Troponin I 0.628 *H Urine Color YELLOW Urine Clarity CLEAR Urine pH 6.0 Urine Specific 1.015 [place] Urine Ketones NEGATIVE Urine Nitrite NEGATIVE Urine Bilirubin NEGATIVE Urine Urobilinogen 1+ H Urine Leukocyte NEGATIVE Esterase Urine Microscopic 1 RBC Urine Microscopic 0 WBC Urine Hemoglobin NEGATIVE Urine Glucose 1+ H Urine Total Protein 2+ H Bedside Glucose 112 170 Test 04/10/18 22:01 04/11/18 05:43 04/11/18 07:58 04/11/18 11:59 Creatine Kinase 69 Creatine Kinase 1.0 Index Creatinine Kinase MB 0.70 (Mass) Troponin I 0.601 *H White Blood Count 9.7 Red Blood Count 3.93 L Hemoglobin 11.5 L Hematocrit 34.5 L Mean Corpuscular 87.8 Volume Mean Corpuscular 29.3 Hemoglobin Mean Corpuscular 33.3 Hemoglobin Concent Red Cell 12.8 Distribution Width Platelet Count 351 Mean Platelet Volume 10.0 Immature 0.300 Granulocytes % Neutrophils % 62.2 Lymphocytes % 22.3 Monocytes % 8.7 Eosinophils % 5.7 Basophils % 0.8 Nucleated Red Blood 0.0 Cells % Immature 0.030 Granulocytes # Neutrophils # 6.0 Lymphocytes # 2.2 Monocytes # 0.8 Eosinophils # 0.6 H Basophils # 0.1 Nucleated Red Blood 0.0 Cells # Sodium Level 140 Potassium Level 4.8 Chloride Level 103 Carbon Dioxide Level 32 H Anion Gap 5 Blood Urea Nitrogen 30 H Creatinine 1.41 H Est Glomerular 50 L Filtrat Rate mL/min Glucose Level 125 Calcium Level 9.1 Magnesium Level 2.0 Total Bilirubin 0.1 L Direct Bilirubin 0.00 Indirect Bilirubin 0.1 Aspartate Amino 17 Transf (AST/SGOT) Alanine 32 Aminotransferase (AL T/SGPT) Alkaline Phosphatase 80 Total Protein 6.2 Albumin 3.3 Globulin 2.90 Albumin/Globulin 1.13 Ratio Bedside Glucose 122 118 Subjective 24 Hr Interval Summary Constitutional: no complaints Exam/Review of Systems Exam Vitals Vital Signs Date Temp Pulse Resp B/P (MAP) Pulse Ox O2 O2 Flow FiO2 Time Delivery Rate 04/11/18 98.5 66 20 137/64 96 15:15 (88) 04/11/18 Room Air 04:00 04/09/18 21 20:59 Intake and Output 04/10/18 04/10/18 04/11/18 1515:00 23:00 07:00 IntakeIntake Total 1200 ml 750 ml BalanceBalance 1200 ml 750 ml Constitutional: alert, oriented Respiratory: clear to auscultation Cardiovascular: regular rate and rhythm Gastrointestinal: soft; No distended Musculoskeletal: nl extremities to inspection Results Results 24hrs Laboratory Tests Test 04/10/18 15:54 04/10/18 16:24 04/10/18 17:25 04/10/18 21:22 Creatine Kinase 81 Creatine Kinase 1.0 Index Creatinine Kinase MB 0.83 (Mass) Troponin I 0.628 *H Urine Color YELLOW Urine Clarity CLEAR Urine pH 6.0 Urine Specific 1.015 [place] Urine Ketones NEGATIVE Urine Nitrite NEGATIVE Urine Bilirubin NEGATIVE Urine Urobilinogen 1+ H Urine Leukocyte NEGATIVE Esterase Urine Microscopic 1 RBC Urine Microscopic 0 WBC Urine Hemoglobin NEGATIVE Urine Glucose 1+ H Urine Total Protein 2+ H Bedside Glucose 112 170 Test 04/10/18 22:01 04/11/18 05:43 04/11/18 07:58 04/11/18 11:59 Creatine Kinase 69 Creatine Kinase 1.0 Index Creatinine Kinase MB 0.70 (Mass) Troponin I 0.601 *H White Blood Count 9.7 Red Blood Count 3.93 L Hemoglobin 11.5 L Hematocrit 34.5 L Mean Corpuscular 87.8 Volume Mean Corpuscular 29.3 Hemoglobin Mean Corpuscular 33.3 Hemoglobin Concent Red Cell 12.8 Distribution Width Platelet Count 351 Mean Platelet Volume 10.0 Immature 0.300 Granulocytes % Neutrophils % 62.2 Lymphocytes % 22.3 Monocytes % 8.7 Eosinophils % 5.7 Basophils % 0.8 Nucleated Red Blood 0.0 Cells % Immature 0.030 Granulocytes # Neutrophils # 6.0 Lymphocytes # 2.2 Monocytes # 0.8 Eosinophils # 0.6 H Basophils # 0.1 Nucleated Red Blood 0.0 Cells # Sodium Level 140 Potassium Level 4.8 Chloride Level 103 Carbon Dioxide Level 32 H Anion Gap 5 Blood Urea Nitrogen 30 H Creatinine 1.41 H Est Glomerular 50 L Filtrat Rate mL/min Glucose Level 125 Calcium Level 9.1 Magnesium Level 2.0 Total Bilirubin 0.1 L Direct Bilirubin 0.00 Indirect Bilirubin 0.1 Aspartate Amino 17 Transf (AST/SGOT) Alanine 32 Aminotransferase (AL T/SGPT) Alkaline Phosphatase 80 Total Protein 6.2 Albumin 3.3 Globulin 2.90 Albumin/Globulin 1.13 Ratio Bedside Glucose 122 118 Medications Medication Current Medications IV Flush (NS 3 ml) 3 ml PER PROTOCOL IV ; Start 04/09/18 at 21:30 Ondansetron HCl (Zofran Tab) 4 mg Q6H PRN PO NAUSEA/VOMITING; Start 04/09/18 at 21:30 Nitroglycerin (Nitroglycerin (Sl Tab) 0.4 Mg) 1 tab Q5M PRN SL .CHEST PAIN; Start 04/09/18 at 21:30 Acetaminophen (Tylenol Tab) 650 mg Q6H PRN PO .PAIN 1-3 OR TEMP; Start 04/09/18 at 21:30 Docusate Sodium (Colace) 100 mg Q12H PRN PO .CONSTIPATION Last administered on 04/11/18at 08:48; Admin Dose 100 MG; Start 04/09/18 at 21:30 Bisacodyl (Dulcolax) 5 mg DAILY PRN PO .CONSTIPATION; Start 04/09/18 at 21:30 Furosemide (Lasix) 20 mg BID DIURETICS IV Last administered on 04/11/18at 05:43 ; Admin Dose 20 MG; Start 04/10/18 at 09:30; Stop 04/12/18 at 09:29 Carvedilol (Coreg) 3.125 mg BID PO Last administered on 04/11/18at 08:13; Admin Dose 3.125 MG; Start 04/10/18 at 21:00 Insulin Glargine (Lantus) 11 units DAILY@2000 SC Last administered on 04/10/18at 21:28; Admin Dose 11 UNITS; Start 04/10/18 at 20:00 Insulin Aspart (Novolog Insulin Pen) 4 unit WITH MEALS SC Last administered on 04/11/18at 12:02; Admin Dose 4 UNIT; Start 04/10/18 at 17:55 Insulin Aspart (Novolog Insulin Pen) NOVOLOG *MILD* ALGORITHM WITH MEALS BEDTIME SC ; Start 04/10/18 at 17:55 Miscellaneous Information 1 ea NOTE XX ; Start 04/10/18 at 13:00 Glucose (Glutose) 15 gm Q15M PRN PO DECREASED GLUCOSE; Start 04/10/18 at 13:00 Glucose (Glutose) 22.5 gm Q15M PRN PO DECREASED GLUCOSE; Start 04/10/18 at 13:00 Dextrose (D50w Syringe) 25 ml Q15M PRN IV DECREASED GLUCOSE; Start 04/10/18 at 13:00 Dextrose (D50w Syringe) 50 ml Q15M PRN IV DECREASED GLUCOSE; Start 04/10/18 at 13:00 Glucagon (Glucagen) 1 mg Q15M PRN IM DECREASED GLUCOSE; Start 04/10/18 at 13:00 Glucose (Glutose) 15 gm Q15M PRN BUCCAL DECREASED GLUCOSE; Start 04/10/18 at 13:00 Hydralazine HCl (Apresoline) 50 mg Q8 PO Last administered on 04/11/18at 14:19; Admin Dose 50 MG; Start 04/10/18 at 14:00 Aspirin (Aspirin) 81 mg DAILY PO Last administered on 04/11/18at 08:13; Admin Dose 81 MG; Start 04/10/18 at 14:00 Enoxaparin Sodium (Lovenox) 75 mg Q24H SC Last administered on 04/11/18at 14:25; Admin Dose 75 MG; Start 04/10/18 at 14:00 Hydralazine HCl (Apresoline) 10 mg Q4H PRN IV SBP>170; Start 04/10/18 at 14:00 Atorvastatin Calcium (Lipitor) 20 mg HS PO Last administered on 04/10/18at 21:24; Admin Dose 20 MG; Start 04/10/18 at 21:00 TAWNYA ROY Apr 11, 2018 15:38
--- NOTE | 2018-04-11 17:52 | QN ---
Documentation Comment seen and ecmained KIAN GUY MD Apr 11, 2018 17:52
--- NOTE | 2018-04-11 18:24 | NUR ---
EOSS: Patient stable on bed, not in distress. Denies any pain/discomfort noted, V/S stable. All needs attended well. Continued monitoring per plan of care.
--- NOTE | 2018-04-11 18:48 | CONS ---
DATE OF ADMISSION: 04/09/2018 DATE OF CONSULTATION: 04/09/2018 REASON FOR ADMISSION: CKD. REASON FOR CONSULTATION: CKD. HISTORY OF PRESENTING ILLNESS: This is a 67-year-old male with a past medical history of diabetes for the last 5 years, hypertension, and hyperlipidemia who presented to the emergency department on 04/09/2018, secondary to complaining of chest pain and shortness of breath. The patient said that he had been experiencing chest pain and shortness of breath since Wednesday night. It was worse with exertion. Denied any swelling of his lower extremities. He was also noticing some abdominal distention. On admission, vital signs had showed body temperature 98.2, pulse 58, respirations 18, and blood pressure 148/67. Chest x-ray showed mild cardiomegaly. EKG showed T-wave inversion in leads V4, V5, and V6. On admission, sodium was 139, potassium 4.1, chloride 104, bicarbonate 34, BUN of 23, and creatinine 1.29. The patient was started on IV Lasix 20 b.i.d., and renal was consulted. Creatinine today has trended up to 1.41. The patient denies any history of renal disease in the past. MEDICATIONS: The patient said that occasionally on and off, he was takin. Motrin. 2. Advil. The patient was taking medications: 3. Losartan 50. 4. Atorvastatin. 5. Hydrochlorothiazide 12.5. 6. Metformin 500 b.i.d. The patient was also found to have an echo with EF of 35% to 40%. PAST MEDICAL HISTORY: 1. Insulin-dependent diabetes. 2. Hypertension. 3. Hyperlipidemia. 4. Left eye surgery. PAST SURGICAL HISTORY: The patient had left eye surgery. SOCIAL HISTORY: Denies any history of smoking, alcohol, or any drug use. 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 FAMILY HISTORY: No history of cardiac disease or renal disease. REVIEW OF SYSTEMS: The patient complains of chest pain and shortness of breath on exertion. Denies any lower extremity edema. The patient has complained of abdominal distention. Denies any nausea, vomiting, or diarrhea. Denies any headache or any blurry vision. Denies any hematemesis, any melena, or blood per rectum. The patient had occasional NSAID use. Denies any nocturia or hematuria. Denies any history of kidney stones. PHYSICAL EXAMINATION: VITAL SIGNS: Currently, blood pressure 137/64, pulse is 66, and respirations 20. GENERAL: the patient is awake, alert, oriented, and does not appear to be in any acute distress. HEENT: Pupils equal, round, and reactive to light. NECK: JVD is elevated. LUNGS: Decreased breath sounds bilaterally. ABDOMEN: Soft, nontender. Has distention. Has umbilical hernia. EXTREMITIES: Trace edema. DIAGNOSTIC DATA: White count 9.7, hemoglobin 11.5, and platelet count is 351. Sodium is 140, potassium is 4.8, creatinine 1.41, and bicarb is 32. Troponin is 0.897 and is currently 0.601. UA shows 2+ protein. No RBCs. ASSESSMENT: This is a 67-year-old male who presented with: 1. acute on chronic systolic congestive heart failure with EF of 30 to 35% presenting with chest pain and shortness of breath. 2. Likely Chronic kidney disease III A with given small size of kidneys with mild component of acute. The patient likely has underlying chronic kidney disease due to diabetic nephropathy. He has a 2+ proteinuria. This could all be exacerbated due to cardiorenal etiology since the patient has a likely non-ST elevation myocardial infraction. The patient was also using hydrochlorothiazide, losartan, and metformin at home 3. Non-ST elevated myocardial infraction.with elevated troponins, chest pain, EKG changes 4. NSAID use. 5. Hypertension. 6. Dyslipidemia. 7. Cardiomyopathy. 8. Proteinuria likely secondary to diabetes. PLAN: 1. At this period of time, the patient is admitted to telemetry. 2. We will check strict I's and O's, fluid restriction, and daily weights. 3. Agree with Lasix 20 IV b.i.d. for now. 4. Renal ultrasound is negative for any hydro and has small kidneys. Probably, the patient has component of chronic kidney disease. 5. I agree with holding metformin, losartan, and hydrochlorothiazide currently. 6. Renally dosing in all meds. 7. Avoid nephrotoxic. 8. Would like to obtain a previous baseline labs on the patient. 9. Should the patient need an angiogram, the patient is a high risk for contrast nephropathy. We will continue to follow the patient with you. 10. We will also send the patient for proteinuria workup. Rest of the treatment depend on the patient's hospitalization course. Dictated By: KIAN MUNSON/ZAKIA Conf#: [id number] DID#: [id number] CC: OSBALDO GRESHAM MD; TAWNYA ROY MD; KIAN GUY;*EndCC* MTDD
[2018-04-11] MEDS: ATORVASTATIN 20 MG TAB PO SCH (20:22)
[2018-04-11] MEDS: INSULIN GLARGINE [LANTus] (100 UNITS/ML) SYG SC SCH (20:28)
[2018-04-12] VITALS (11 sets, daily range): BP systolic 107–151; BP diastolic 63–69; PULSE 59–69; RESP 18–20
[2018-04-12] MEDS: GUAIFENESIN/DM 5ML CUP PO PRN ×2 (01:35→21:39)
[2018-04-12] MEDS: FUROSEMIDE 20 MG INJ IV SCH (06:04)
--- NOTE | 2018-04-12 07:17 | NUR ---
KEPT NPO POST MIDNIGHT. NO SIGNIFICANT CHANGES. VS REMAINS STABLE. DENIES ANY CHEST PAIN. WILL ENDORSE TO AM SHIFT FOR CONTINUITY OF CARE
[2018-04-12] MEDS: INSULIN ASPART [NOVOLOG] 3 ML PEN SC SCH ×7 (07:35→20:11)
[2018-04-12] MEDS: ASPIRIN 81 MG TAB PO SCH (08:07)
[2018-04-12] MEDS ORDERED: REGADENOSON 0.4 MG/5 ML SYG ONE (09:16)
--- NOTE | 2018-04-12 10:34 | CONS ---
Consult Date/Type/Reason Admit Date/Time Apr 09, 2018 at 20:39 Initial Consult Date Requesting Provider: ANTHONY GARCÍA Date/Time of Note DATE: 04/12/18 TIME: 10:31 Subjective NO acute events - stress test complete -will follow results. ROS: No fever, no chills, no nausea, no vomiting, no diarrhea/constipation No recent weight changes No chest pain, no PND, no orthopnea -mild SOB No dizziness, blurred vision No thirst, no heat or cold intolerance Objective Vitals Vital Signs Date Temp Pulse Resp B/P (MAP) Pulse Ox O2 O2 Flow FiO2 Time Delivery Rate 04/12/18 66 08:00 04/12/18 98.4 20 135/63 94 07:29 (87) 04/11/18 Room Air 04:00 04/09/18 21 20:59 Intake and Output 04/11/18 04/11/18 04/12/18 1515:00 23:00 07:00 IntakeIntake Total 750 ml 520 ml OutputOutput Total 850 ml BalanceBalance 750 ml -330 ml Exam General: WN/WD/NAD, AOx 3 HEENT: Unicetric/atraumatic/EOMI (follows commands) NECK: JVD elevated, no thyromegaly Lymph: no lymphadenopathy HEART: regular with no S3, II/ systolic murmur at apex, PMI L LUNGS: Coarse sounds ABD: soft, NT, ND, +BS : Intact Neuro: non focal SKIN: chronic changes EXT: trace edema Results/Medications Result Diagram: 04/12/18 0645 04/12/18 0645 Results 24 hrs Laboratory Tests Test 04/11/18 11:59 04/11/18 17:22 04/11/18 18:05 04/11/18 20:21 Bedside Glucose 118 96 141 Urine Eosinophils % 0.0 Urine Random 108.54 Creatinine Urine Random Sodium 105 H Urine 2.71 Protein/Creatinine Ratio Urine Total Protein 295.0 H Test 04/12/18 06:45 04/12/18 07:35 White Blood Count 10.6 Red Blood Count 4.09 L Hemoglobin 11.8 L Hematocrit 35.6 L Mean Corpuscular 87.0 Volume Mean Corpuscular 28.9 L Hemoglobin Mean Corpuscular 33.1 Hemoglobin Concent Red Cell 13.1 Distribution Width Platelet Count 368 Mean Platelet Volume 10.0 Immature 0.600 H Granulocytes % Neutrophils % 65.0 Lymphocytes % 21.8 Monocytes % 9.0 Eosinophils % 2.8 Basophils % 0.8 Nucleated Red Blood 0.0 Cells % Immature 0.060 H Granulocytes # Neutrophils # 6.9 Lymphocytes # 2.3 Monocytes # 1.0 H Eosinophils # 0.3 Basophils # 0.1 Nucleated Red Blood 0.0 Cells # Sodium Level 138 Potassium Level 3.8 Chloride Level 103 Carbon Dioxide Level 31 Anion Gap 4 L Blood Urea Nitrogen 33 H Creatinine 1.49 H Est Glomerular 47 L Filtrat Rate mL/min Glucose Level 99 Calcium Level 8.9 Total Bilirubin 0.3 Direct Bilirubin 0.00 Indirect Bilirubin 0.3 Aspartate Amino 15 Transf (AST/SGOT) Alanine 26 Aminotransferase (AL T/SGPT) Alkaline Phosphatase 72 Total Protein 6.5 Albumin 3.4 Globulin 3.10 Albumin/Globulin 1.09 Ratio Bedside Glucose 110 Home Meds Reported Medications Hydrochlorothiazide* (Hydrochlorothiazide*) Unknown Strength Tablet, 12.5 MG PO DAILY, #30 TAB 04/09/18 Atorvastatin* (Atorvastatin*) Unknown Strength Tablet, PO QHS, #30 TAB 04/09/18 Losartan Potassium* (Losartan Potassium*) Unknown Strength Tablet, 50 MG PO DAILY, TAB 04/09/18 Metformin Hcl* (Metformin Hcl*) 500 Mg Tablet, 500 MG PO BID, #30 TAB 04/09/18 Medications Current Medications IV Flush (NS 3 ml) 3 ml PER PROTOCOL IV ; Start 04/09/18 at 21:30 Ondansetron HCl (Zofran Tab) 4 mg Q6H PRN PO NAUSEA/VOMITING; Start 04/09/18 at 21:30 Nitroglycerin (Nitroglycerin (Sl Tab) 0.4 Mg) 1 tab Q5M PRN SL .CHEST PAIN; Start 04/09/18 at 21:30 Acetaminophen (Tylenol Tab) 650 mg Q6H PRN PO .PAIN 1-3 OR TEMP; Start 04/09/18 at 21:30 Docusate Sodium (Colace) 100 mg Q12H PRN PO .CONSTIPATION Last administered on 04/11/18at 08:48; Admin Dose 100 MG; Start 04/09/18 at 21:30 Bisacodyl (Dulcolax) 5 mg DAILY PRN PO .CONSTIPATION; Start 04/09/18 at 21:30 Carvedilol (Coreg) 3.125 mg BID PO Last administered on 04/12/18at 08:07; Admin Dose 3.125 MG; Start 04/10/18 at 21:00 Insulin Glargine (Lantus) 11 units DAILY@2000 SC Last administered on 04/11/18at 20:28; Admin Dose 11 UNITS; Start 04/10/18 at 20:00 Insulin Aspart (Novolog Insulin Pen) 4 unit WITH MEALS SC Last administered on 04/12/18at 07:49; Admin Dose 4 UNIT; Start 04/10/18 at 17:55 Insulin Aspart (Novolog Insulin Pen) NOVOLOG *MILD* ALGORITHM WITH MEALS BEDTIME SC ; Start 04/10/18 at 17:55 Miscellaneous Information 1 ea NOTE XX ; Start 04/10/18 at 13:00 Glucose (Glutose) 15 gm Q15M PRN PO DECREASED GLUCOSE; Start 04/10/18 at 13:00 Glucose (Glutose) 22.5 gm Q15M PRN PO DECREASED GLUCOSE; Start 04/10/18 at 13:00 Dextrose (D50w Syringe) 25 ml Q15M PRN IV DECREASED GLUCOSE; Start 04/10/18 at 13:00 Dextrose (D50w Syringe) 50 ml Q15M PRN IV DECREASED GLUCOSE; Start 04/10/18 at 13:00 Glucagon (Glucagen) 1 mg Q15M PRN IM DECREASED GLUCOSE; Start 04/10/18 at 13:00 Glucose (Glutose) 15 gm Q15M PRN BUCCAL DECREASED GLUCOSE; Start 04/10/18 at 13:00 Hydralazine HCl (Apresoline) 50 mg Q8 PO Last administered on 04/12/18at 06:05; Admin Dose 50 MG; Start 04/10/18 at 14:00 Aspirin (Aspirin) 81 mg DAILY PO Last administered on 04/12/18at 08:07; Admin Dose 81 MG; Start 04/10/18 at 14:00 Enoxaparin Sodium (Lovenox) 75 mg Q24H SC Last administered on 04/11/18at 14:25; Admin Dose 75 MG; Start 04/10/18 at 14:00 Hydralazine HCl (Apresoline) 10 mg Q4H PRN IV SBP>170; Start 04/10/18 at 14:00 Atorvastatin Calcium (Lipitor) 20 mg HS PO Last administered on 04/11/18at 20:22; Admin Dose 20 MG; Start 04/10/18 at 21:00 Guaifenesin/ Dextromethorphan (Robitussin Dm Liquid Cup) 5 ml Q4H PRN PO COUGH Last administered on 04/12/18at 01:35; Admin Dose 5 ML; Start 04/12/18 at 01:30 Imaging General: WN/WD/NAD, AOx 3 HEENT: Unicetric/atraumatic/EOMI (follows commands) NECK: JVD elevated, no thyromegaly Lymph: no lymphadenopathy HEART: regular with no S3, II/ systolic murmur at apex, PMI L LUNGS: Coarse sounds ABD: soft, NT, ND, +BS : Intact Neuro: non focal SKIN: chronic changes EXT: trace edema Assessment/Plan Hospital Course (Demo Recall) 1. Positive troponin, concerning for non-ST elevation myocardial infarction, no significant uptrend in the setting of renal failure.-downtrending - Stress test complete - will await results now. 2. Chest pain with positive troponins, likely consistent with [id number] myocardial infarction. On meds. 3. Shortness of breath, assess for congestive heart failure- better currently - keep euvolemic. 4. Increased BNP, assess for congestive heart failure. ECHO Ef 35-40% - con't to diureses gently. 5. Abnormal electrocardiogram with inferior and lateral T-wave inversions, assess for acute coronary syndrome. 6. Hypertension, uncontrolled. 7. Dyslipidemia. 8. Bradycardia with heart rates to the 50s. 9. Cardiomyopathy with decreased LVEF by echo this admit - no ICD needed. COLTEN LIU MD Apr 12, 2018 10:34
--- NOTE | 2018-04-12 13:11 | SP ---
DATE OF PROCEDURE: REFERRING PHYSICIAN: Adebayo Gresham MD REASON FOR EVALUATION: Chest pain. DESCRIPTION OF PROCEDURE: The patient was brought into laboratory tech in fasting state. He was somewhat b radycardic with nonspecific ST-T changes and significant LVH. The patient tolerated the injection we ll. The blood pressure was 155/70. The imaging portion of the report will be dictated separately. Dictated By: COLTEN LIU MD ML/NTS Conf#: [id number] DID#: [id number] CC: ADEBAYO GRESHAM MD; KIAN GUY; TAWNYA ROY MD;*EndCC*
[2018-04-12] MEDS: ENOXAPARIN 80 MG/0.8 ML SYG SC SCH (13:19)
--- NOTE | 2018-04-12 13:20 | CONS ---
Assessment/Plan Assessment/Plan Assessment/Plan (Daily) 67 y/o 1. acute on chronic systolic congestive heart failure with EF of 30 to 35% presenting with chest pain and shortness of breath. 2. Likely Chronic kidney disease III A with given small size of kidneys with mild component of acute. The patient likely has underlying chronic kidney disease due to diabetic nephropathy. He has a 2+ proteinuria. This could all be exacerbated due to cardiorenal etiology since the patient has a likely non-ST elevation myocardial infraction. The patient was also using hydrochlorothiazide, losartan, and metformin at home . Cr Fluctuating 3. Non-ST elevated myocardial infraction.with elevated troponins, chest pain, EKG changes 4. NSAID use. 5. Hypertension. 6. Dyslipidemia. 7. Cardiomyopathy. 8. Proteinuria likely secondary to diabetes. Plan - Baseline labs pending -Creatinine fluctuating -Patient can be switched to p.o. Lasix if okay with cardiology -Stress test per cardiology -Proteinuria workup pending -he will need to be followed up as an outpatient for continuation of care Consultation Date/Type/Reason Admit Date/Time Apr 09, 2018 at 20:39 Initial Consult Date Requesting Provider: ANTHONY GARCÍA Date/Time of Note DATE: 04/12/18 TIME: 13:20 24 HR Interval Summary Free Text/Dictation Pt feels a lot better Cr fluctating Exam/Review of Systems Exam Vitals Vital Signs Date Temp Pulse Resp B/P (MAP) Pulse Ox O2 O2 Flow FiO2 Time Delivery Rate 04/12/18 97.9 65 20 149/67 94 11:26 (94) 04/11/18 Room Air 04:00 04/09/18 21 20:59 Intake and Output 04/11/18 04/11/18 04/12/18 1515:00 23:00 07:00 IntakeIntake Total 750 ml 520 ml OutputOutput Total 850 ml BalanceBalance 750 ml -330 ml Exam GENERAL: the patient is awake, alert, oriented, and does not appear to be in any acute distress. HEENT: Pupils equal, round, and reactive to light. NECK: JVD is elevated. LUNGS: Decreased breath sounds bilaterally. ABDOMEN: Soft, nontender. Has distention. Has umbilical hernia. EXTREMITIES: Trace edema. Results Result Diagram: 04/12/18 0645 04/12/18 0645 Results 24hrs Laboratory Tests Test 04/11/18 17:22 04/11/18 18:05 04/11/18 20:21 04/12/18 06:45 Bedside Glucose 96 141 Urine Eosinophils % 0.0 Urine Random 108.54 Creatinine Urine Random Sodium 105 H Urine 2.71 Protein/Creatinine Ratio Urine Total Protein 295.0 H White Blood Count 10.6 Red Blood Count 4.09 L Hemoglobin 11.8 L Hematocrit 35.6 L Mean Corpuscular 87.0 Volume Mean Corpuscular 28.9 L Hemoglobin Mean Corpuscular 33.1 Hemoglobin Concent Red Cell 13.1 Distribution Width Platelet Count 368 Mean Platelet Volume 10.0 Immature 0.600 H Granulocytes % Neutrophils % 65.0 Lymphocytes % 21.8 Monocytes % 9.0 Eosinophils % 2.8 Basophils % 0.8 Nucleated Red Blood 0.0 Cells % Immature 0.060 H Granulocytes # Neutrophils # 6.9 Lymphocytes # 2.3 Monocytes # 1.0 H Eosinophils # 0.3 Basophils # 0.1 Nucleated Red Blood 0.0 Cells # Sodium Level 138 Potassium Level 3.8 Chloride Level 103 Carbon Dioxide Level 31 Anion Gap 4 L Blood Urea Nitrogen 33 H Creatinine 1.49 H Est Glomerular 47 L Filtrat Rate mL/min Glucose Level 99 Calcium Level 8.9 Total Bilirubin 0.3 Direct Bilirubin 0.00 Indirect Bilirubin 0.3 Aspartate Amino 15 Transf (AST/SGOT) Alanine 26 Aminotransferase (AL T/SGPT) Alkaline Phosphatase 72 Total Protein 6.5 Albumin 3.4 Globulin 3.10 Albumin/Globulin 1.09 Ratio Test 04/12/18 07:35 04/12/18 11:52 Bedside Glucose 110 104 Medications Medication Current Medications IV Flush (NS 3 ml) 3 ml PER PROTOCOL IV ; Start 04/09/18 at 21:30 Ondansetron HCl (Zofran Tab) 4 mg Q6H PRN PO NAUSEA/VOMITING; Start 04/09/18 at 21:30 Nitroglycerin (Nitroglycerin (Sl Tab) 0.4 Mg) 1 tab Q5M PRN SL .CHEST PAIN; Start 04/09/18 at 21:30 Acetaminophen (Tylenol Tab) 650 mg Q6H PRN PO .PAIN 1-3 OR TEMP; Start 04/09/18 at 21:30 Docusate Sodium (Colace) 100 mg Q12H PRN PO .CONSTIPATION Last administered on 04/11/18at 08:48; Admin Dose 100 MG; Start 04/09/18 at 21:30 Bisacodyl (Dulcolax) 5 mg DAILY PRN PO .CONSTIPATION; Start 04/09/18 at 21:30 Carvedilol (Coreg) 3.125 mg BID PO Last administered on 04/12/18 08:07; Admin Dose 3.125 MG; Start 04/10/18 at 21:00 Insulin Glargine (Lantus) 11 units DAILY@2000 SC Last administered on 04/11/18at 20:28; Admin Dose 11 UNITS; Start 04/10/18 at 20:00 Insulin Aspart (Novolog Insulin Pen) 4 unit WITH MEALS SC Last administered on 04/12/18 11:55; Admin Dose 4 UNIT; Start 04/10/18 at 17:55 Insulin Aspart (Novolog Insulin Pen) NOVOLOG *MILD* ALGORITHM WITH MEALS BEDTIME SC ; Start 04/10/18 at 17:55 Miscellaneous Information 1 ea NOTE XX ; Start 04/10/18 at 13:00 Glucose (Glutose) 15 gm Q15M PRN PO DECREASED GLUCOSE; Start 04/10/18 at 13:00 Glucose (Glutose) 22.5 gm Q15M PRN PO DECREASED GLUCOSE; Start 04/10/18 at 13:00 Dextrose (D50w Syringe) 25 ml Q15M PRN IV DECREASED GLUCOSE; Start 04/10/18 at 13:00 Dextrose (D50w Syringe) 50 ml Q15M PRN IV DECREASED GLUCOSE; Start 04/10/18 at 13:00 Glucagon (Glucagen) 1 mg Q15M PRN IM DECREASED GLUCOSE; Start 04/10/18 at 13:00 Glucose (Glutose) 15 gm Q15M PRN BUCCAL DECREASED GLUCOSE; Start 04/10/18 at 13:00 Hydralazine HCl (Apresoline) 50 mg Q8 PO Last administered on 04/12/18 13:10; Admin Dose 50 MG; Start 04/10/18 at 14:00 Aspirin (Aspirin) 81 mg DAILY PO Last administered on 04/12/18 08:07; Admin Dose 81 MG; Start 04/10/18 at 14:00 Enoxaparin Sodium (Lovenox) 75 mg Q24H SC Last administered on 2/12/19at 13:19; Admin Dose 75 MG; Start 04/10/18 at 14:00 Hydralazine HCl (Apresoline) 10 mg Q4H PRN IV SBP>170; Start 04/10/18 at 14:00 Atorvastatin Calcium (Lipitor) 20 mg HS PO Last administered on 04/11/18at 20:22; Admin Dose 20 MG; Start 04/10/18 at 21:00 Guaifenesin/ Dextromethorphan (Robitussin Dm Liquid Cup) 5 ml Q4H PRN PO COUGH Last administered on 04/12/18at 01:35; Admin Dose 5 ML; Start 04/12/18 at 01:30 KIAN GUY MD Apr 12, 2018 13:20
--- NOTE | 2018-04-12 15:16 | PN ---
Date/Time of Note Date/Time of Note DATE: 04/12/18 TIME: 15:14 Assessment/Plan VTE Prophylaxis Risk score (from Nsg)>0 risk: 2 Pharmacological prophylaxis: LMWH Lines/Catheters IV Catheter Type (from Nrsg): Saline Lock Assessment/Plan Hospital Course 68 yo male with DMII, hypertension with SOB and volume overload, suggestive of new onset heart failure 1. Acute systolic CHF-newly diagnosed -Echo shows an EF of 35-40%, patient has no known history of CHF or [place] -Cardiology consultation appreciated, follow-up with recommendations -Continue diuresis to euvolemia -Continue Coreg 2. Non-STEMI -Likely type II as patient has no complaints of chest pain -Continue therapeutic Lovenox, aspirin and statin -Stress test shows a small nonreversible defect 3. Diabetes -A1c is 7.4 -Continue scheduled insulin and sliding scale 4. Hypertension -Continue Coreg and hydralazine 5. Acute kidney injury on likely CKD -Nephrology consultation appreciated -Creatinine is rising -Renal ultrasound is unremarkable -Workup in progress Prophylaxis: Lovenox DC planning: Patient's renal function is worsening, workup in progress Result Diagram: 04/12/18 0645 04/12/18 0645 Results 24hrs Laboratory Tests Test 04/11/18 17:22 04/11/18 18:05 04/11/18 20:21 04/12/18 06:45 Bedside Glucose 96 141 Urine Eosinophils % 0.0 Urine Random 108.54 Creatinine Urine Random Sodium 105 H Urine 2.71 Protein/Creatinine Ratio Urine Total Protein 295.0 H White Blood Count 10.6 Red Blood Count 4.09 L Hemoglobin 11.8 L Hematocrit 35.6 L Mean Corpuscular 87.0 Volume Mean Corpuscular 28.9 L Hemoglobin Mean Corpuscular 33.1 Hemoglobin Concent Red Cell 13.1 Distribution Width Platelet Count 368 Mean Platelet Volume 10.0 Immature 0.600 H Granulocytes % Neutrophils % 65.0 Lymphocytes % 21.8 Monocytes % 9.0 Eosinophils % 2.8 Basophils % 0.8 Nucleated Red Blood 0.0 Cells % Immature 0.060 H Granulocytes # Neutrophils # 6.9 Lymphocytes # 2.3 Monocytes # 1.0 H Eosinophils # 0.3 Basophils # 0.1 Nucleated Red Blood 0.0 Cells # Sodium Level 138 Potassium Level 3.8 Chloride Level 103 Carbon Dioxide Level 31 Anion Gap 4 L Blood Urea Nitrogen 33 H Creatinine 1.49 H Est Glomerular 47 L Filtrat Rate mL/min Glucose Level 99 Calcium Level 8.9 Total Bilirubin 0.3 Direct Bilirubin 0.00 Indirect Bilirubin 0.3 Aspartate Amino 15 Transf (AST/SGOT) Alanine 26 Aminotransferase (AL T/SGPT) Alkaline Phosphatase 72 Total Protein 6.5 Albumin 3.4 Globulin 3.10 Albumin/Globulin 1.09 Ratio Test 04/12/18 07:35 04/12/18 11:52 Bedside Glucose 110 104 Subjective 24 Hr Interval Summary Constitutional: no complaints Exam/Review of Systems Exam Vitals Vital Signs Date Temp Pulse Resp B/P (MAP) Pulse Ox O2 O2 Flow FiO2 Time Delivery Rate 04/12/18 63 12:00 04/12/18 97.9 20 149/67 94 11:26 (94) 04/11/18 Room Air 04:00 04/09/18 21 20:59 Intake and Output 04/11/18 04/11/18 04/12/18 1515:00 23:00 07:00 IntakeIntake Total 750 ml 520 ml OutputOutput Total 850 ml BalanceBalance 750 ml -330 ml Constitutional: alert, oriented Respiratory: clear to auscultation Cardiovascular: regular rate and rhythm Gastrointestinal: soft; No distended Musculoskeletal: nl extremities to inspection Results Results 24hrs Laboratory Tests Test 04/11/18 17:22 04/11/18 18:05 04/11/18 20:21 04/12/18 06:45 Bedside Glucose 96 141 Urine Eosinophils % 0.0 Urine Random 108.54 Creatinine Urine Random Sodium 105 H Urine 2.71 Protein/Creatinine Ratio Urine Total Protein 295.0 H White Blood Count 10.6 Red Blood Count 4.09 L Hemoglobin 11.8 L Hematocrit 35.6 L Mean Corpuscular 87.0 Volume Mean Corpuscular 28.9 L Hemoglobin Mean Corpuscular 33.1 Hemoglobin Concent Red Cell 13.1 Distribution Width Platelet Count 368 Mean Platelet Volume 10.0 Immature 0.600 H Granulocytes % Neutrophils % 65.0 Lymphocytes % 21.8 Monocytes % 9.0 Eosinophils % 2.8 Basophils % 0.8 Nucleated Red Blood 0.0 Cells % Immature 0.060 H Granulocytes # Neutrophils # 6.9 Lymphocytes # 2.3 Monocytes # 1.0 H Eosinophils # 0.3 Basophils # 0.1 Nucleated Red Blood 0.0 Cells # Sodium Level 138 Potassium Level 3.8 Chloride Level 103 Carbon Dioxide Level 31 Anion Gap 4 L Blood Urea Nitrogen 33 H Creatinine 1.49 H Est Glomerular 47 L Filtrat Rate mL/min Glucose Level 99 Calcium Level 8.9 Total Bilirubin 0.3 Direct Bilirubin 0.00 Indirect Bilirubin 0.3 Aspartate Amino 15 Transf (AST/SGOT) Alanine 26 Aminotransferase (AL T/SGPT) Alkaline Phosphatase 72 Total Protein 6.5 Albumin 3.4 Globulin 3.10 Albumin/Globulin 1.09 Ratio Test 04/12/18 07:35 04/12/18 11:52 Bedside Glucose 110 104 Medications Medication Current Medications IV Flush (NS 3 ml) 3 ml PER PROTOCOL IV ; Start 04/09/18 at 21:30 Ondansetron HCl (Zofran Tab) 4 mg Q6H PRN PO NAUSEA/VOMITING; Start 04/09/18 at 21:30 Nitroglycerin (Nitroglycerin (Sl Tab) 0.4 Mg) 1 tab Q5M PRN SL .CHEST PAIN; Start 04/09/18 at 21:30 Acetaminophen (Tylenol Tab) 650 mg Q6H PRN PO .PAIN 1-3 OR TEMP; Start 04/09/18 at 21:30 Docusate Sodium (Colace) 100 mg Q12H PRN PO .CONSTIPATION Last administered on 04/11/18at 08:48; Admin Dose 100 MG; Start 04/09/18 at 21:30 Bisacodyl (Dulcolax) 5 mg DAILY PRN PO .CONSTIPATION; Start 04/09/18 at 21:30 Carvedilol (Coreg) 3.125 mg BID PO Last administered on 04/12/18at 08:07; Admin Dose 3.125 MG; Start 04/10/18 at 21:00 Insulin Glargine (Lantus) 11 units DAILY@2000 SC Last administered on 04/11/18at 20:28; Admin Dose 11 UNITS; Start 04/10/18 at 20:00 Insulin Aspart (Novolog Insulin Pen) 4 unit WITH MEALS SC Last administered on 04/12/18at 11:55; Admin Dose 4 UNIT; Start 04/10/18 at 17:55 Insulin Aspart (Novolog Insulin Pen) NOVOLOG *MILD* ALGORITHM WITH MEALS BEDTIME SC ; Start 04/10/18 at 17:55 Miscellaneous Information 1 ea NOTE XX ; Start 04/10/18 at 13:00 Glucose (Glutose) 15 gm Q15M PRN PO DECREASED GLUCOSE; Start 04/10/18 at 13:00 Glucose (Glutose) 22.5 gm Q15M PRN PO DECREASED GLUCOSE; Start 04/10/18 at 13:00 Dextrose (D50w Syringe) 25 ml Q15M PRN IV DECREASED GLUCOSE; Start 04/10/18 at 13:00 Dextrose (D50w Syringe) 50 ml Q15M PRN IV DECREASED GLUCOSE; Start 04/10/18 at 13:00 Glucagon (Glucagen) 1 mg Q15M PRN IM DECREASED GLUCOSE; Start 04/10/18 at 13:00 Glucose (Glutose) 15 gm Q15M PRN BUCCAL DECREASED GLUCOSE; Start 04/10/18 at 13:00 Hydralazine HCl (Apresoline) 50 mg Q8 PO Last administered on 04/12/18at 13:10; Admin Dose 50 MG; Start 04/10/18 at 14:00 Aspirin (Aspirin) 81 mg DAILY PO Last administered on 04/12/18at 08:07; Admin Dose 81 MG; Start 04/10/18 at 14:00 Enoxaparin Sodium (Lovenox) 75 mg Q24H SC Last administered on 04/12/18at 13:19; Admin Dose 75 MG; Start 04/10/18 at 14:00 Hydralazine HCl (Apresoline) 10 mg Q4H PRN IV SBP>170; Start 04/10/18 at 14:00 Atorvastatin Calcium (Lipitor) 20 mg HS PO Last administered on 04/11/18at 20:22; Admin Dose 20 MG; Start 04/10/18 at 21:00 Guaifenesin/ Dextromethorphan (Robitussin Dm Liquid Cup) 5 ml Q4H PRN PO COUGH Last administered on 04/12/18at 01:35; Admin Dose 5 ML; Start 04/12/18 at 01:30 TAWNYA ROY Apr 12, 2018 15:16
--- NOTE | 2018-04-12 18:31 | NUR ---
EOSS PT IS AX4, STABLE, NO S/S OF DISTRESS NOTED. PT HAD A STRESS DONE TODAY EF 48%. HOURLY ROUNDING DONE, REFUSED BED ALARM , SKIN INTACT, VS STABLE.
[2018-04-12] MEDS: ATORVASTATIN 20 MG TAB PO SCH (20:11)
[2018-04-12] MEDS: INSULIN GLARGINE [LANTus] (100 UNITS/ML) SYG SC SCH (20:18)
[2018-04-13] VITALS (8 sets, daily range): BP systolic 137–157; BP diastolic 63–70; PULSE 57–79; RESP 18–19
--- NOTE | 2018-04-13 06:24 | NUR ---
EOSS Pt AOx4, SR/SB, on RA through night, O2 sats remained WNL. No complaints of pain from pt, no acute events, all needs attended to, will endorse to oncoming RN.
[2018-04-13] MEDS: INSULIN ASPART [NOVOLOG] 3 ML PEN SC SCH ×4 (07:51→11:34)
[2018-04-13] MEDS: ASPIRIN 81 MG TAB PO SCH (08:09)
[2018-04-13] MEDS: ENOXAPARIN 80 MG/0.8 ML SYG SC SCH (13:02)
[2018-04-13] MEDS ORDERED: ASPI-831 PO (14:18)
[2018-04-13] MEDS ORDERED: HYDR-3672 PO (14:18)
[2018-04-13] MEDS ORDERED: CARV6.25 PO (14:18)
--- NOTE | 2018-04-13 14:19 | PDOCDIS ---
Discharge Instructions CONDITION [id number] Patient Condition: [id number] Good HOME CARE INSTRUCTIONS: [id number] Diet Instructions: Ciqsc2y Reduced Sodium [id number] Special Diet: [id number] LOW CARB AND SALT ACTIVITY: [id number] Activity Restrictions: [id number] No Restrictions FOLLOW UP/APPOINTMENTS Follow-up Plan Follow-up with your PCP 1-2 weeks, follow-up with a securities dealer TAWNYA ROY Apr 13, 2018 14:19
[2018-04-13] MEDS ORDERED: FURO-110 PO (14:46)
[2018-04-13] MEDS ORDERED: ATOR20TA65 PO (14:48)
--- NOTE | 2018-04-13 15:10 | PN ---
Date/Time of Note Date/Time of Note DATE: 04/13/18 TIME: 15:09 Assessment/Plan VTE Prophylaxis Risk score (from Ns)>0 risk: 2 SCD applied (from [facility] [place]): No SCD contraindicated: low risk/ambulating Pharmacological prophylaxis: NA/contraindicated Pharm contraindication: low risk/ambulating Lines/Catheters IV [facility] Saline Lock Assessment/Plan Hospital Course 1 acute on chronic systolic congestive heart failure with EF of 30 to 35% presenting with chest pain and shortness of breath. 2. Likely Chronic kidney disease III A with given small size of kidneys with mild component of acute. The patient likely has underlying chronic kidney disease due to diabetic nephropathy. He has a 2+ proteinuria. This could all be exacerbated due to cardiorenal etiology since the patient has a likely non-ST elevation myocardial infraction. The patient was also using hydrochlorothiazide, losartan, and metformin at home . Cr Fluctuating 3. Non-ST elevated myocardial infraction.with elevated troponins, chest pain, EKG changes 4. NSAID use. 5. Hypertension. 6. Dyslipidemia. 7. Cardiomyopathy. 8. Proteinuria likely secondary to diabetes. Plan -Creatinine fluctuating -Patient can be switched to p.o. Lasix -Proteinuria workup pending -he will need to be followed up as an outpatient for continuation of care DC planning Result Diagram: 04/13/18 0559 04/13/18 0559 Results 24hrs Laboratory Tests Test 04/12/18 17:30 04/12/18 20:01 04/13/18 05:59 04/13/18 07:42 Bedside Glucose 135 150 91 White Blood Count 9.9 Red Blood Count 4.16 L Hemoglobin 11.9 L Hematocrit 36.2 L Mean Corpuscular 87.0 Volume Mean Corpuscular 28.6 L Hemoglobin Mean Corpuscular 32.9 Hemoglobin Concent Red Cell 13.3 Distribution Width Platelet Count 372 Mean Platelet Volume 10.1 Immature 0.400 Granulocytes % Neutrophils % 58.5 Lymphocytes % 26.7 Monocytes % 9.6 Eosinophils % 3.7 Basophils % 1.1 Nucleated Red Blood 0.0 Cells % Immature 0.040 H Granulocytes # Neutrophils # 5.8 Lymphocytes # 2.7 Monocytes # 1.0 H Eosinophils # 0.4 Basophils # 0.1 Nucleated Red Blood 0.0 Cells # Sodium Level 136 Potassium Level 4.0 Chloride Level 100 Carbon Dioxide Level 29 Anion Gap 7 Blood Urea Nitrogen 33 H Creatinine 1.36 H Est Glomerular 52 L Filtrat Rate mL/min Glucose Level 96 Calcium Level 8.6 Total Bilirubin 0.3 Direct Bilirubin 0.00 Indirect Bilirubin 0.3 Aspartate Amino 20 Transf (AST/SGOT) Alanine 30 Aminotransferase (AL T/SGPT) Alkaline Phosphatase 67 Total Protein 6.2 Albumin 3.2 L Globulin 3.00 Albumin/Globulin 1.06 Ratio Test 04/13/18 11:26 Bedside Glucose 169 Subjective 24 Hr Interval Summary Free Text/Dictation Feels well. Exam/Review of Systems Exam Vitals Vital Signs Date Temp Pulse Resp B/P (MAP) Pulse Ox O2 O2 Flow FiO2 Time Delivery Rate 04/13/18 97.7 61 18 157/70 96 12:52 (99) 04/11/18 Room Air 04:00 04/09/18 21 20:59 Intake and Output 04/12/18 04/12/18 04/13/18 1515:00 23:00 07:00 IntakeIntake Total 500 ml 400 ml BalanceBalance 500 ml 400 ml Exam GENERAL: the patient is awake, alert, oriented, and does not appear to be in any acute distress. HEENT: Pupils equal, round, and reactive to light. NECK: JVD is elevated. LUNGS: Decreased breath sounds bilaterally. ABDOMEN: Soft, nontender. Has distention. Has umbilical hernia. EXTREMITIES: Trace edema. Results Results 24hrs Laboratory Tests Test 04/12/18 17:30 04/12/18 20:01 04/13/18 05:59 04/13/18 07:42 Bedside Glucose 135 150 91 White Blood Count 9.9 Red Blood Count 4.16 L Hemoglobin 11.9 L Hematocrit 36.2 L Mean Corpuscular 87.0 Volume Mean Corpuscular 28.6 L Hemoglobin Mean Corpuscular 32.9 Hemoglobin Concent Red Cell 13.3 Distribution Width Platelet Count 372 Mean Platelet Volume 10.1 Immature 0.400 Granulocytes % Neutrophils % 58.5 Lymphocytes % 26.7 Monocytes % 9.6 Eosinophils % 3.7 Basophils % 1.1 Nucleated Red Blood 0.0 Cells % Immature 0.040 H Granulocytes # Neutrophils # 5.8 Lymphocytes # 2.7 Monocytes # 1.0 H Eosinophils # 0.4 Basophils # 0.1 Nucleated Red Blood 0.0 Cells # Sodium Level 136 Potassium Level 4.0 Chloride Level 100 Carbon Dioxide Level 29 Anion Gap 7 Blood Urea Nitrogen 33 H Creatinine 1.36 H Est Glomerular 52 L Filtrat Rate mL/min Glucose Level 96 Calcium Level 8.6 Total Bilirubin 0.3 Direct Bilirubin 0.00 Indirect Bilirubin 0.3 Aspartate Amino 20 Transf (AST/SGOT) Alanine 30 Aminotransferase (AL T/SGPT) Alkaline Phosphatase 67 Total Protein 6.2 Albumin 3.2 L Globulin 3.00 Albumin/Globulin 1.06 Ratio Test 04/13/18 11:26 Bedside Glucose 169 Medications Medication Current Medications IV Flush (NS 3 ml) 3 ml PER PROTOCOL IV ; Start 04/09/18 at 21:30 Ondansetron HCl (Zofran Tab) 4 mg Q6H PRN PO NAUSEA/VOMITING; Start 04/09/18 at 21:30 Nitroglycerin (Nitroglycerin (Sl Tab) 0.4 Mg) 1 tab Q5M PRN SL .CHEST PAIN; Start 04/09/18 at 21:30 Acetaminophen (Tylenol Tab) 650 mg Q6H PRN PO .PAIN 1-3 OR TEMP; Start 04/09/18 at 21:30 Docusate Sodium (Colace) 100 mg Q12H PRN PO .CONSTIPATION Last administered on 04/11/18at 08:48; Admin Dose 100 MG; Start 04/09/18 at 21:30 Bisacodyl (Dulcolax) 5 mg DAILY PRN PO .CONSTIPATION; Start 04/09/18 at 21:30 Carvedilol (Coreg) 3.125 mg BID PO Last administered on 04/13/18at 08:09; Admin Dose 3.125 MG; Start 04/10/18 at 21:00 Insulin Glargine (Lantus) 11 units DAILY@2000 SC Last administered on 04/12/18 20:18; Admin Dose 11 UNITS; Start 04/10/18 at 20:00 Insulin Aspart (Novolog Insulin Pen) 4 unit WITH MEALS SC Last administered on 04/13/18 11:34; Admin Dose 4 UNIT; Start 04/10/18 at 17:55 Insulin Aspart (Novolog Insulin Pen) NOVOLOG *MILD* ALGORITHM WITH MEALS BEDTIME SC Last administered on 04/13/18 11:34; Admin Dose 1 UNIT; Start 04/10/18 at 17:55 Miscellaneous Information 1 ea NOTE XX ; Start 2/10/19 at 13:00 Glucose (Glutose) 15 gm Q15M PRN PO DECREASED GLUCOSE; Start 04/10/18 at 13:00 Glucose (Glutose) 22.5 gm Q15M PRN PO DECREASED GLUCOSE; Start 04/10/18 at 13:00 Dextrose (D50w Syringe) 25 ml Q15M PRN IV DECREASED GLUCOSE; Start 04/10/18 at 13:00 Dextrose (D50w Syringe) 50 ml Q15M PRN IV DECREASED GLUCOSE; Start 04/10/18 at 13:00 Glucagon (Glucagen) 1 mg Q15M PRN IM DECREASED GLUCOSE; Start 04/10/18 at 13:00 Glucose (Glutose) 15 gm Q15M PRN BUCCAL DECREASED GLUCOSE; Start 04/10/18 at 13:00 Hydralazine HCl (Apresoline) 50 mg Q8 PO Last administered on 04/13/18at 13:00; Admin Dose 50 MG; Start 04/10/18 at 14:00 Aspirin (Aspirin) 81 mg DAILY PO Last administered on 04/13/18at 08:09; Admin Dose 81 MG; Start 04/10/18 at 14:00 Enoxaparin Sodium (Lovenox) 75 mg Q24H SC Last administered on 04/13/18at 13:02; Admin Dose 75 MG; Start 04/10/18 at 14:00 Hydralazine HCl (Apresoline) 10 mg Q4H PRN IV SBP>170; Start 04/10/18 at 14:00 Atorvastatin Calcium (Lipitor) 20 mg HS PO Last administered on 04/12/18at 20:11; Admin Dose 20 MG; Start 04/10/18 at 21:00 Guaifenesin/ Dextromethorphan (Robitussin Dm Liquid Cup) 5 ml Q4H PRN PO COUGH Last administered on 04/12/18at 21:39; Admin Dose 5 ML; Start 04/12/18 at 01:30 KIAN GUY MD Apr 13, 2018 15:10
--- NOTE | 2018-04-13 15:47 | CONS ---
Assessment/Plan Assessment/Plan Hospital Course (Demo Recall) IMPRESSION: 1. Positive troponin, concerning for non-ST elevation myocardial infarction, no significant uptrend in the setting of renal failure.-downtrending. Now s/p lexiscan with mildly decreased ef/scar and no active ischemia 2. Chest pain with positive troponins, likely consistent with [id number] myocardial infarction. 3. Shortness of breath, assess for congestive heart failure. 4. Increased BNP, assess for congestive heart failure. 5. Abnormal electrocardiogram with inferior and lateral T-wave inversions, assess for acute coronary syndrome. 6. Hypertension, uncontrolled. 7. Dyslipidemia. 8. Bradycardia with heart rates to the 50s. 9. Cardiomyopathy with decreased LVEF by echo this admit REcc -Tele -serial ecg;'s -continue coreg/hydralazine with slight increase in lieu of ACEI given renal failure -Would maintain on basaeline low dose lasix given low EF/CKD -decrease lovenox to DVT prophylaxis doses Consultation Date/Type/Reason Admit Date/Time Apr 09, 2018 at 20:39 Initial Consult Date 04/10/18 Type of Consult Cardiology Reason for Consultation CHF Requesting Provider: ANTHONY GARCÍA Date/Time of Note DATE: 04/13/18 TIME: 15:41 Exam/Review of Systems Vital Signs Vitals Vital Signs Date Temp Pulse Resp B/P (MAP) Pulse Ox O2 O2 Flow FiO2 Time Delivery Rate 04/13/18 97.7 61 18 157/70 96 12:52 (99) 04/11/18 Room Air 04:00 04/09/18 21 20:59 Intake and Output 04/12/18 04/12/18 04/13/18 1414:59 22:59 06:59 IntakeIntake Total 500 ml 400 ml BalanceBalance 500 ml 400 ml Exam Exam Review of Systems: CONSTITUTIONAL: No fevers, chills. PULMONARY: No sob CARDIOVASCULAR: No chest pain/palpitations GASTROINTESTINAL: No nausea/vomiting. GENITOURINARY: No hematuria/dysuria. MUSCULOSKELETAL: No myagias/arthalgias. PSYCHIATRIC: The patient denies depression. NEUROLOGIC: No weakness Constitutional: alert, oriented Psych: no complaints Head: normocephalic ENMT: mucosa pink and moist Neck: supple, jvd (9 cm water) Respiratory: clear to auscultation Cardiovascular: regular rate and rhythm Gastrointestinal: soft, non-tender Musculoskeletal: muscle tone (normal) Extremities: edema (none) Neurological: other (No focal deficits) Labs Result Diagram: 04/13/1859 04/13/18 0559 Results 24hrs Laboratory Tests Test 04/12/18 17:30 04/12/18 20:01 04/13/18 05:59 04/13/18 07:42 Bedside Glucose 135 150 91 White Blood Count 9.9 Red Blood Count 4.16 L Hemoglobin 11.9 L Hematocrit 36.2 L Mean Corpuscular 87.0 Volume Mean Corpuscular 28.6 L Hemoglobin Mean Corpuscular 32.9 Hemoglobin Concent Red Cell 13.3 Distribution Width Platelet Count 372 Mean Platelet Volume 10.1 Immature 0.400 Granulocytes % Neutrophils % 58.5 Lymphocytes % 26.7 Monocytes % 9.6 Eosinophils % 3.7 Basophils % 1.1 Nucleated Red Blood 0.0 Cells % Immature 0.040 H Granulocytes # Neutrophils # 5.8 Lymphocytes # 2.7 Monocytes # 1.0 H Eosinophils # 0.4 Basophils # 0.1 Nucleated Red Blood 0.0 Cells # Sodium Level 136 Potassium Level 4.0 Chloride Level 100 Carbon Dioxide Level 29 Anion Gap 7 Blood Urea Nitrogen 33 H Creatinine 1.36 H Est Glomerular 52 L Filtrat Rate mL/min Glucose Level 96 Calcium Level 8.6 Total Bilirubin 0.3 Direct Bilirubin 0.00 Indirect Bilirubin 0.3 Aspartate Amino 20 Transf (AST/SGOT) Alanine 30 Aminotransferase (AL T/SGPT) Alkaline Phosphatase 67 Total Protein 6.2 Albumin 3.2 L Globulin 3.00 Albumin/Globulin 1.06 Ratio Test 04/13/18 11:26 Bedside Glucose 169 Medications Medications Current Medications IV Flush (NS 3 ml) 3 ml PER PROTOCOL IV ; Start 04/09/18 at 21:30 Ondansetron HCl (Zofran Tab) 4 mg Q6H PRN PO NAUSEA/VOMITING; Start 04/09/18 at 21:30 Nitroglycerin (Nitroglycerin (Sl Tab) 0.4 Mg) 1 tab Q5M PRN SL .CHEST PAIN; Start 04/09/18 at 21:30 Acetaminophen (Tylenol Tab) 650 mg Q6H PRN PO .PAIN 1-3 OR TEMP; Start 04/09/18 at 21:30 Docusate Sodium (Colace) 100 mg Q12H PRN PO .CONSTIPATION Last administered on 04/11/18at 08:48; Admin Dose 100 MG; Start 04/09/18 at 21:30 Bisacodyl (Dulcolax) 5 mg DAILY PRN PO .CONSTIPATION; Start 04/09/18 at 21:30 Carvedilol (Coreg) 3.125 mg BID PO Last administered on 04/13/18 08:09; Admin Dose 3.125 MG; Start 04/10/18 at 21:00 Insulin Glargine (Lantus) 11 units DAILY@2000 SC Last administered on 04/12/18 20:18; Admin Dose 11 UNITS; Start 04/10/18 at 20:00 Insulin Aspart (Novolog Insulin Pen) 4 unit WITH MEALS SC Last administered on 04/13/18 11:34; Admin Dose 4 UNIT; Start 04/10/18 at 17:55 Insulin Aspart (Novolog Insulin Pen) NOVOLOG *MILD* ALGORITHM WITH MEALS BEDTIME SC Last administered on 04/13/18 11:34; Admin Dose 1 UNIT; Start 04/10/18 at 17:55 Miscellaneous Information 1 ea NOTE XX ; Start 04/10/18 at 13:00 Glucose (Glutose) 15 gm Q15M PRN PO DECREASED GLUCOSE; Start 04/10/18 at 13:00 Glucose (Glutose) 22.5 gm Q15M PRN PO DECREASED GLUCOSE; Start 04/10/18 at 13:00 Dextrose (D50w Syringe) 25 ml Q15M PRN IV DECREASED GLUCOSE; Start 04/10/18 at 13:00 Dextrose (D50w Syringe) 50 ml Q15M PRN IV DECREASED GLUCOSE; Start 04/10/18 at 13:00 Glucagon (Glucagen) 1 mg Q15M PRN IM DECREASED GLUCOSE; Start 04/10/18 at 13:00 Glucose (Glutose) 15 gm Q15M PRN BUCCAL DECREASED GLUCOSE; Start 04/10/18 at 13:00 Hydralazine HCl (Apresoline) 50 mg Q8 PO Last administered on 04/13/18at 13:00; Admin Dose 50 MG; Start 04/10/18 at 14:00 Aspirin (Aspirin) 81 mg DAILY PO Last administered on 04/13/18 08:09; Admin Dose 81 MG; Start 04/10/18 at 14:00 Enoxaparin Sodium (Lovenox) 75 mg Q24H SC Last administered on 04/13/18at 13:02; Admin Dose 75 MG; Start 04/10/18 at 14:00 Hydralazine HCl (Apresoline) 10 mg Q4H PRN IV SBP>170; Start 04/10/18 at 14:00 Atorvastatin Calcium (Lipitor) 20 mg HS PO Last administered on 04/12/18at 20:11; Admin Dose 20 MG; Start 04/10/18 at 21:00 Guaifenesin/ Dextromethorphan (Robitussin Dm Liquid Cup) 5 ml Q4H PRN PO COUGH Last administered on 04/12/18at 21:39; Admin Dose 5 ML; Start 04/12/18 at 01:30 CHRISTI HART Apr 13, 2018 15:47
[2018-04-13] MEDS ORDERED: FUROSEMIDE 20 MG TAB PO SCH (16:00)
--- NOTE | 2018-04-13 16:45 | DS ---
Date/Time of Note Date/Time of Note DATE: 04/13/18 TIME: 16:40 Discharge Summary Admission/Discharge Info Admit Date/Time Apr 09, 2018 at 20:39 Discharge Date/Time April 13, 2018 Discharge Diagnosis 1. Acute systolic CHF-newly diagnosed -Echo shows an EF of 35-40%, patient has no known history of CHF or [place] -Cardiology consultation appreciated -DC with Coreg, no VALERIA or arm at this time secondary to acute kidney injury, resume as output -Status post diuresis, now at euvolemia -Continue Coreg and Lasix upon DC -Follow-up with cardiology as an outpatient 2. Non-STEMI -Likely type II as patient has no complaints of chest pain -Continue therapeutic Lovenox, aspirin and statin -Stress test shows a small nonreversible defect -DC with aspirin and statin 3. Diabetes -A1c is 7.4 -Continue home metformin, lifestyle changes advised 4. Hypertension -Continue Coreg and hydralazine -Hold losartan, resume his outpatient -Have recommended to discontinue HCTZ as to give room to go up on Coreg dose 5. Acute kidney injury on likely CKD -Nephrology consultation appreciated -Creatinine has now stable -Renal ultrasound is unremarkable -Hold losartan for now, anticipate resuming as outpatient Patient Condition: Good Hospital Course Patient is a 68 yo male with DMII, hypertension since with SOB and volume overload suggestive of new onset heart failure. 2D echo did show an EF 35-40% the patient did have evidence of a non-STEMI but denied chest pain. Patient was seen by cardiology, stress test showed a small nonreversible defect. Patient did have acute kidney injury on CKD and was seen by nephrology, renal ultrasound showed small kidneys indicative of chronic diabetic nephropathy. Patient's creatinine did stabilize, losartan was held. Patient was stable for DC, on the day of discharge patient's vitals, labs and physical exam are stable. Home Meds Active Scripts Atorvastatin Calcium (Atorvastatin Calcium) 20 Mg Tablet, 20 MG PO HS, #60 TAB Prov:TAWNYA ROY 04/13/18 Furosemide* (Lasix*) 20 Mg Tablet, 20 MG PO DAILY, #60 TAB Prov:TAWNYA ROY 04/13/18 Aspirin (Aspirin) 81 Mg Chew, 81 MG PO DAILY, #60 TAB Prov:TAWNYA ROY 04/13/18 Carvedilol* (Coreg*) 6.25 Mg Tablet, 6.25 MG PO BID, #60 TAB Prov:TAWNYA ROY 04/13/18 Hydralazine Hcl* (Apresoline*) 50 Mg Tab, 50 MG PO Q8, #90 TAB Prov:TAWNYA ROY 04/13/18 Reported Medications Metformin Hcl* (Metformin Hcl*) 500 Mg Tablet, 500 MG PO BID, #30 TAB 04/09/18 Discontinued Reported Medications Hydrochlorothiazide* (Hydrochlorothiazide*) Unknown Strength Tablet, 12.5 MG PO DAILY, #30 TAB 04/09/18 Atorvastatin* (Atorvastatin*) Unknown Strength Tablet, PO QHS, #30 TAB 04/09/18 Losartan Potassium* (Losartan Potassium*) Unknown Strength Tablet, 50 MG PO DAILY, TAB 04/09/18 Follow-up Plan Follow-up with your PCP 1-2 weeks, follow-up with a aerospace products sales engineer Primary Care Provider [facility] Time spent on discharge: > 30 minutes TAWNYA ROY Apr 13, 2018 16:45
--- NOTE | 2018-04-13 16:46 | NUR ---
DC instructions are given to the pt and pt's son, education on new medication are given to the pt and the family. Pt and family verbalized understanding of given instructions. IV access was removed, no bleeding noted. VS are WNL, no chest pain noted. Pt is aware to make appointment with PCP and [employer]. Pt left the unit via wheelchair.
== END 2018-04-13 16:50 | disposition home or self-care (01) | DRG 280 ==
LOC: E/R 15:54 → TEL 20:39
PROVIDERS: ADMIT Family Medicine; ATTEND Internal Medicine
DX: I21.A1 Myocardial infarction type 2 (principal); I50.21 Acute systolic (congestive) heart failure; I13.0 Hypertensive heart and chronic kidney disease with heart failure and stage 1 through stage 4 chronic kidney disease, or unspecified chronic kidney disease; N17.9 Acute kidney failure, unspecified; E11.22 Type 2 diabetes mellitus with diabetic chronic kidney disease; R00.1 Bradycardia, unspecified; E78.5 Hyperlipidemia, unspecified; Z79.4 Long term (current) use of insulin; N18.3 Chronic kidney disease, stage 3 (moderate); E11.21 Type 2 diabetes mellitus with diabetic nephropathy
CPT/HCPCS: 71045; 76775; 78452; 80048; 80053; 80061; 80069; 81001; 81003; 82550; 82553; 82570; 82962; 83036; 83735; 83880; 84155; 84165; 84300; 84484; 85025; 85610; 85730; 86038; 86592; 89190; 90686; 93005; 93017; 93306; 94644; A9500; A9505; J1815; J1940; J2785